=== PATIENT | male | born 1950 | race Caucasian/White ===

== ENCOUNTER 2018-06-22 13:52 | Inpatient (IN) ==
--- NOTE | 2018-06-22 14:06 | Emergency Department Note ---
Disposition Clinical Impression: Fever, Pneumonia, Diabetes Disposition: Admitted As Inpatient Condition: Good Referrals: Maulik Ragsdale MD [Primary Care Provider] - Forms: ED Satisfaction Letter Time of Disposition: 15:34 (nadege obsv) Weakness HPI - General Chief complaint: ED Weakness Stated complaint: elevated glucose, gen weakness Time Seen by Provider: 06/22/18 13:53 Source: patient Mode of arrival: ambulatory Limitations: no limitations Nursing Notes Reviewed: Yes Vital Signs Reviewed: Yes - History of Present Illness HPI Narrative: 68-year-old male who presents to the emergency room his had fever nausea vomiting ill feeling was supposed to be of the family's today but was too significantly. Denies blurred vision double vision loss vision denies numbness tingling weakness recent weight gain or weight loss patient just states does not feel his self he states that he has had a little cramping followed by explosive watery diarrhea he has had vomiting but denies anything tripped precipitated denies any rashes or lesions all systems have been reviewed and are otherwise negative Pt Subjective Complaint: generalized weakness/fatigue Onset (ago): Just [employer] Location: generalized Improves with: none Worsens with: none Context: recent illness Associated symptoms: Reports: fever/chills, loss of appetite, nausea/vomiting, shortness of breath, other (Elevated sugars). Denies: chest pain, confusion, dark stools, diaphoresis, dysuria, easy bruising, headaches, myalgias, rash, syncope - Related Data Home Medications Medication Instructions Recorded Confirmed Allopurinol [Zyloprim] 100 mg PO DAILY 12/06/15 06/22/18 Atorvastatin Calcium [Lipitor] 20 mg PO HS 12/06/15 06/22/18 Clopidogrel [Plavix] 75 mg PO DAILY 12/06/15 06/22/18 Isosorbide MONOnitrate (24 HR) 30 mg PO DAILY 12/06/15 02/24/18 [Imdur] Multivitamin [Multi-Day Vitamins] 1 each PO DAILY 12/06/15 02/24/18 Sertraline [Zoloft] 100 mg PO DAILY 12/06/15 06/22/18 Sucralfate [Carafate] 1 gm PO QID 12/06/15 06/22/18 Insulin Degludec [Tresiba 60 unit SQ HS 03/16/16 06/22/18 Flextouch U-100] Metoclopramide HCl 5 mg PO QID 03/16/16 06/22/18 Budesonide/Formoterol 160/4.5 2 puff IH BID 07/21/16 02/24/18 [Symbicort 160/4.5] Cyanocobalamin (Vitamin B-12) 1,000 mcg PO DAILY 07/21/16 06/22/18 [Vitamin B-12] Docusate Sodium [Dok] 100 mg PO TID 07/21/16 06/22/18 Ferrous Sulfate [Iron] 325 mg PO DAILY 07/21/16 06/22/18 Insulin ASPART [NovoLOG] 0 unit SQ AD 07/21/16 06/22/18 Magnesium Oxide [Mag-Ox] 400 mg PO DAILY 07/21/16 06/22/18 Nitroglycerin [Nitrostat] 0.4 mg SL Q5M PRN 07/21/16 02/24/18 Torsemide [Demadex] 60 mg PO BID 07/21/16 06/22/18 raNITIdine HCl [Ranitidine HCl] 150 mg PO DAILY 07/21/16 06/22/18 Potassium Chloride [K-Tab ER] 40 meq PO BID 08/11/17 06/22/18 Hydralazine HCl 100 mg PO BID 02/24/18 02/24/18 Apixaban [Eliquis] 5 mg PO BID 06/22/18 06/22/18 Apresoline 1 PO TID 06/22/18 Budesonide/Formoterol 160/4.5 2 puff IH BIDR 06/22/18 06/22/18 [Symbicort 160/4.5] Isosorbide MONOnitrate (24 HR) 60 mg PO DAILY 06/22/18 06/22/18 [Imdur] NIFEdipine [Nifedipine ER] 90 mg PO BID 06/22/18 06/22/18 Pantoprazole Sodium [Protonix] 40 mg PO 06/22/18 Sertraline [Zoloft] 100 mg PO DAILY 06/22/18 06/22/18 Spironolactone [Aldactone] 50 mg PO DAILY 06/22/18 06/22/18 cloNIDine HCl [Clonidine HCl] 0.2 mg PO BID 04/22/19 04/22/19 Previous Rx's Medication Instructions Recorded LORazepam [Ativan] 0.5 mg PO BID PRN #20 tablet 07/22/16 Carvedilol [Coreg] 50 mg PO BIDWM 30 Days #60 tablet 08/13/17 Allergies Allergy/AdvReac Type Severity Reaction Status Date / Time lisinopril Allergy Severe Swelling Verified 02/24/18 11:43 of Lip/Tongue/Throat All systems ED: reviewed and negative except as stated. Review of Systems: As Per HPI Constitutional: Reports: fever, chills, weakness Eyes: Denies: eye pain, eye discharge ENT ED: Denies: ear pain, throat pain Cardiovascular: Reports: palpitations, dyspnea on exertion, other (Hypoxia has pulse oximetry at home showing that he was in the low 70s). Denies: chest pain Respiratory: Reports: cough, dyspnea, wheezes Gastrointestinal: Reports: nausea, vomiting, diarrhea. Denies: abdominal pain Genitourinary: Denies: urgency, dysuria Musculoskeletal: Denies: back pain Integumentary: Denies: rash, abrasion Neurological: Denies: headache Psychiatric: Denies: anxiety Endocrine: Denies: fatigue Hematological/Lymphatic: Denies: easy bleeding Allergic/Immunologic: Denies: facial swelling Past Medical History - Past Medical History Attestation: Yes The following information was validated with the patient. Source: patient, old records reviewed, obtained from family, nursing notes reviewed Medical history: Reports: cancer, cirrhosis, CHF, COPD, coronary artery disease, diabetes, hyperlipidemia, hypertension, myocardial infarction, other (Hard of hearing, pericardial effusion) Surgical history: Reports: angioplasty/stent, other Psychiatric history: Reports: depression - Social History Smoking Status: Current every day smoker Smokeless Tobacco Status: No Alcohol use: Reports: none Drug use: Reports: none Physical Exam - General Limitations: no limitations General appearance: alert, in no apparent distress, obese - Head Head exam: atraumatic, normocephalic, normal inspection - Eye Eye exam: Present: normal appearance, PERRL, EOMI - ENT ENT exam: normal exam, normal oropharynx, mucous membranes moist, TM's normal bilaterally, normal external ear exam - Neck Neck exam: Present: normal inspection, full ROM, trachea midline - Chest Chest inspection: Present: normal inspection, symmetric chest wall rise - Respiratory Respiratory exam: Present: normal lung sounds bilaterally - Cardiovascular Cardiovascular exam: Present: regular rate, normal rhythm, normal heart sounds - Abdominal Exam Abdominal exam: Present: soft, Non-Tender, normal bowel sounds, scar (Evidence of prior PEG tube noted). Absent: Guerrero's sign, tenderness at McBurney's Point, mass, pulsatile mass, hernia - Expanded Upper Extremity Exam Shoulder exam: Present: normal inspection, full ROM Arm exam: Present: normal inspection, full ROM Elbow exam: Present: normal inspection, full ROM Forearm/Wrist exam: Present: normal inspection, full ROM Hand exam: Present: normal inspection, full ROM Vascular exam: Normal: capillary refill, radial pulse - Expanded Lower Extremity Exam Hip/Pelvis exam: Present: normal inspection, full ROM Upper leg exam: Present: normal inspection, full ROM 1 - Amputation Knee exam: Present: normal inspection, full ROM Lower leg exam: Present: normal inspection, full ROM Ankle exam: Present: normal inspection, full ROM Foot/toe exam: Present: normal inspection, full ROM Neurovascular/Tendon exam: Present: normal capillary refill, normal fine/light touch. Absent: motor deficit, sensory deficit, tendon deficit Gait: not tested/not observed - Back Exam Back exam: Present: normal inspection, full ROM. Absent: muscle spasm - Neurological Exam Neurological exam: Present: alert, oriented X3, CN II-XII intact - Psychiatric Psychiatric exam: Present: normal affect, normal mood - Skin Skin exam: Present: warm, dry, intact, normal color Course Course Narrative: Patient was seen and examined laboratory data was ordered and also a chest x-ray patient was describing symptoms which could be consistent infectious etiology we did blood cultures and lactic acid also for this reason With the patient's result shows that he has a developing pneumonia on the chest x-ray which accounts for the elevated white count and would account for his overall weakness and worsening patient's family is agreeable patient is agreeable patient transferred to [facility] Vital Signs Temperature 99.4 F 06/22/18 13:54 Pulse Rate 69 06/22/18 13:54 Respiratory Rate 14 06/22/18 13:54 Blood Pressure 196/70 06/22/18 13:54 O2 Sat by Pulse Oximetry 91 06/22/18 13:54 Temperature 99.4 F 06/22/18 13:54 Pulse Rate 58 06/22/18 14:56 Respiratory Rate 18 06/22/18 14:56 Blood Pressure 135/52 06/22/18 14:56 O2 Sat by Pulse Oximetry 94 06/22/18 14:56 Oxygen Delivery Oxygen Delivery Nasal Cannula Weakness - Differential Diagnosis Differential Diagnosis: Likely: acute myocardial infarction, anemia, hypogl ycemia, sepsis/infection, dehydration, medication effect, metabolic, thyroid/endocrine disorder - Medical Records Medical records reviewed: Yes I reviewed the patient's medical records. - Lab Data Lab results reviewed: Yes I reviewed the patient's lab results. Result diagrams: 06/22/18 14:23 06/22/18 14:23 Lab Results 06/22/18 06/22/18 06/22/18 Range/Units 14:23 14:23 14:23 WBC 26.6 H (4.3-11.1) K/mcL RBC 4.45 (4.19-5.50) M/mcL Hgb 10.7 L (12.9-16.9) g/dL Hct 33.7 L (37.5-50.1) % MCV 75.7 L (83.0-100.0) fL MCH 24.0 L (28.0-33.3) pg MCHC 31.8 (31.6-35.5) g/dL RDW 16.5 H (11.5-14.5) % Plt Count 278 (140-400) K/mcL MPV 8.9 L (9.4-12.4) fL Seg Neutrophils % 86.0 % Band Neutrophils % 2.0 (0-4) % Lymphocytes % 6.0 % Monocytes % 2.0 % Metamyelocytes % 2.0 H (0) % Promyelocytes % 2.0 H (0) % Neutrophils # 23.4 H (1.6-8.9) K/mcL Lymphocytes # 1.6 (0.6-4.6) K/mcL Monocytes # 0.5 (0.0-1.3) K/mcL Hypersegmented Neuts Present A (Not Present) Toxic Vacuolation Present A (Not Present) Platelet Estimate Normal (Normal) Microcytosis Present A (Not Present) PT (9.4-12.1) Seconds INR APTT 38.5 H (26.0-36.0) Seconds Sodium 135 L (136-145) mEq/L Potassium 3.6 (3.5-5.1) mEq/L Chloride 99 (98-107) mEq/L Carbon Dioxide 26 (23-29) mEq/L BUN 30 H (8-23) mg/dL Creatinine 1.46 H (0.70-1.30) mg/dL Est GFR ( Amer) 58 L (> 60) Est GFR (Non-Af Amer) 48 L (> 60) BUN/Creatinine Ratio 21 (6-26) Glucose 353 H (70-105) mg/dL Calculated Osmolality 300 (280-300) Lactic Acid (0.5-2.2) mmol/L Calcium 8.9 (8.6-10.3) mg/dL Total Bilirubin 0.5 (0.3-1.0) mg/dL AST 8 L (13-39) Units/L ALT 8 (7-52) Units/L Alkaline Phosphatase 97 (34-104) Units/L Troponin I (< 0.04) ng/mL Serum Total Protein 6.8 (6.4-8.9) g/dL Albumin 3.7 (3.5-5.7) g/dL Globulin 3.1 (2.4-3.5) g/dL Albumin/Globulin Ratio 1.2 (1.1-2.2) TSH (0.340-5.600) mcIU/mL 06/22/18 06/22/18 06/22/18 Range/Units 14:23 14:23 14:23 WBC (4.3-11.1) K/mcL RBC (4.19-5.50) M/mcL Hgb (12.9-16.9) g/dL Hct (37.5-50.1) % MCV (83.0-100.0) fL MCH (28.0-33.3) pg MCHC (31.6-35.5) g/dL RDW (11.5-14.5) % Plt Count (140-400) K/mcL MPV (9.4-12.4) fL Seg Neutrophils % % Band Neutrophils % (0-4) % Lymphocytes % % Monocytes % % Metamyelocytes % (0) % Promyelocytes % (0) % Neutrophils # (1.6-8.9) K/mcL Lymphocytes # (0.6-4.6) K/mcL Monocytes # (0.0-1.3) K/mcL Hypersegmented Neuts (Not Present) Toxic Vacuolation (Not Present) Platelet Estimate (Normal) Microcytosis (Not Present) PT 16.7 H (9.4-12.1) Seconds INR 1.5 APTT (26.0-36.0) Seconds Sodium (136-145) mEq/L Potassium (3.5-5.1) mEq/L Chloride (98-107) mEq/L Carbon Dioxide (23-29) mEq/L BUN (8-23) mg/dL Creatinine (0.70-1.30) mg/dL Est GFR ( Amer) (> 60) Est GFR (Non-Af Amer) (> 60) BUN/Creatinine Ratio (6-26) Glucose (70-105) mg/dL Calculated Osmolality (280-300) Lactic Acid 1.7 (0.5-2.2) mmol/L Calcium (8.6-10.3) mg/dL Total Bilirubin (0.3-1.0) mg/dL AST (13-39) Units/L ALT (7-52) Units/L Alkaline Phosphatase (34-104) Units/L Troponin I 0.04 H* (< 0.04) ng/mL Serum Total Protein (6.4-8.9) g/dL Albumin (3.5-5.7) g/dL Globulin (2.4-3.5) g/dL Albumin/Globulin Ratio (1.1-2.2) TSH 3.221 (0.340-5.600) mcIU/mL - Radiology Data Radiology results reviewed: Yes I reviewed the patient's radiology results. - EKG Data EKG attestation: Yes I reviewed and interpreted this EKG. EKG results narrative: Sinus rhythm prolonged OK nonspecific interventricular conduction delay no ST segment elevation rate 56 OK 218 QRS 126 QT 469 axis XXIV Critical Care Time Critical Care Time: No Sepsis Event Note - Evaluation Current Stage of Suspected Sepsis: ruled out Reason for ruling out sepsis: lactic and no end organ damage Possible Source of Sepsis: pulmonary - Focused Exam Date of Encounter: 06/22/18 Time of Encounter: 15:48 Vital Signs: Vital Signs Temp Pulse Resp BP Pulse Ox 06/22/18 14:56 58 18 135/52 94 06/22/18 14:34 57 18 133/54 95 06/22/18 14:03 91 06/22/18 13:54 99.4 F 69 14 196/70 91 Respiratory Exam: Present: CTA bilaterally, rhonchi Cardiovascular Exam: Present: RRR Capillary Refill: < 2 seconds Peripheral Pulse Strength: 3+ normal Peripheral Pulse Location: Radial Skin Exam: normal turgor - Bedside Monitoring Bedside Ultrasound Performed: No Passive Leg raise/fluid bolus: not performed
[2018-06-22] MEDS ORDERED: 0.9 % Sodium Chloride 1,000 ML ONE (14:13)
[2018-06-22] MEDS ORDERED: 0.9 % Sodium Chloride 1,000 ML IVC SCH (14:15)
[2018-06-22 14:32] LABS: Hematocrit 33.7 % (37.5-50.1); Hemoglobin 10.7 g/dL (12.9-16.9); Mean Corpuscular HGB Conc 31.8 g/dL (31.6-35.5); Mean Corpuscular Volume 75.7 fL (83.0-100.0); Mean Platelet Volume 8.9 fL (9.4-12.4); Platelet Count 278 K/mcL (140-400); Red Blood Count 4.45 M/mcL (4.19-5.50); Red Cell Distribution Width 16.5 % (11.5-14.5)
[2018-06-22 14:41] LABS: INR 1.5; Prothrombin Time 16.7 Seconds (9.4-12.1)
[2018-06-22 14:47] LABS: Albumin 3.7 g/dL (3.5-5.7); Albumin/Globulin Ratio 1.2 (1.1-2.2); Bilirubin,Total 0.5 mg/dL (0.3-1.0); Calcium 8.9 mg/dL (8.6-10.3); Globulin 3.1 g/dL (2.4-3.5); Potassium 3.6 mEq/L (3.5-5.1); Total Protein 6.8 g/dL (6.4-8.9)
[2018-06-22 14:53] LABS: Troponin I 0.04 ng/mL (< 0.04)
[2018-06-22 14:56] LABS: Lymphocytes # 1.6 K/mcL (0.6-4.6); Monocytes # 0.5 K/mcL (0.0-1.3); Neutrophils # 23.4 K/mcL (1.6-8.9)
[2018-06-22 14:57] LABS: Hypersegmented Neutrophils Present (Not Present); Microcytosis Present (Not Present)
[2018-06-22 14:58] LABS: Platelet Estimate Normal (Normal); Toxic Vacuolation Present (Not Present)
[2018-06-22] MEDS ORDERED: Azithromycin 500 MG in D5% in Water 250 ML IVPB ONE (15:02)
[2018-06-22 15:13] LABS: Thyroid Stimulating Hormone 3.221 mcIU/mL (0.340-5.600)
--- NOTE | 2018-06-22 15:56 | Electrocardiograph Report ---
[place] [id number] Test Date: 2018-06-22 Pat Name: Sukhdev Jimenez Department: EDP-16 Room: Gender: M [employer]: : 1950 Requested By: Diana Lin Order Number: [id number] Reading MD: Lucy Zaman Measurements Intervals Gracey Rate: 56 P: -25 WA: 218 QRS: 24 QRSD: 126 T: 61 QT: 469 QTc: 453 Interpretive Statements Sinus rhythm Prolonged WA interval Nonspecific intraventricular conduction delay Electronically Signed On 06-22-2018 15:54:26 EDT by Lucy Zaman
[2018-06-22] MEDS ORDERED: 0.45 % Sodium Chloride w/KCl 20 MEQ/1,000 ML MLS IVC SCH (18:15)
[2018-06-22] MEDS ORDERED: D5% in Water 1,000 ML IVC PRN (18:54)
[2018-06-22] MEDS ORDERED: Dextrose Gel 15 GM/37.5 ML TUBE PO PRN ×2 (18:54)
[2018-06-22] MEDS ORDERED: Naloxone 0.4 MG/ML INJ IVP PRN (18:54)
[2018-06-22] MEDS ORDERED: *HR* Dextrose 50 % in Water (Syg) 50 ML SYRINGE IVP PRN (18:54)
[2018-06-22] MEDS: Sucralfate 1 GM TABLET PO SCH ×2 (21:00→23:16)
[2018-06-22] MEDS ORDERED: Insulin DETEMIR 100 UNIT/ML per UNIT SQ ONE (21:00)
[2018-06-22] MEDS: Insulin LISPRO 300 UNITS/3 ML VIAL SQ SCH (21:01)
[2018-06-22] MEDS: 0.45 % Sodium Chloride w/KCl 20 MEQ/1,000 ML MLS IVC SCH (21:01)
[2018-06-22] MEDS: NIFEdipine XL (24 HR) 30 MG TAB.ER.24 PO SCH (21:02)
[2018-06-22] MEDS: Apixaban 5 MG TABLET PO SCH (21:02)
[2018-06-22] MEDS: Nicotine 21 MG PATCH.TD24 TD SCH (21:02)
[2018-06-22] MEDS: cloNIDine HCl 0.1 MG TABLET PO SCH (21:03)
[2018-06-22] MEDS: *HR* LORazepam 0.5 MG TABLET PO PRN (21:03)
[2018-06-22] MEDS: Torsemide 20 MG TABLET PO SCH (21:11)
[2018-06-22] MEDS: Budesonide/Formoterol 160/4.5 1 PUFF INH IH SCH (23:07)
[2018-06-23 06:43] LABS: Basophils # 0.1 K/mcL (0.0-0.2); Basophils % 0.4 %; Eosinophils # 0.2 K/mcL (0.0-0.6); Eosinophils % 1.3 %; Hematocrit 33.3 % (37.5-50.1); Hemoglobin 10.5 g/dL (12.9-16.9); Immature Granulocytes % 0.4 % (0-4); Lymphocytes # 1.4 K/mcL (0.6-4.6); Lymphocytes % 10.4 %; Mean Corpuscular HGB Conc 31.5 g/dL (31.6-35.5); Mean Platelet Volume 9.5 fL (9.4-12.4); Monocytes # 0.6 K/mcL (0.0-1.3); Monocytes % 4.3 %; Neutrophils # 11.3 K/mcL (1.6-8.9); Platelet Count 254 K/mcL (140-400); Red Blood Count 4.38 M/mcL (4.19-5.50); Red Cell Distribution Width 16.4 % (11.5-14.5); Segmented Neutrophils % 83.2 %
[2018-06-23 07:06] LABS: BUN/Creatinine Ratio 21 (6-26); Blood Urea Nitrogen 23 mg/dL (8-23); Calcium 8.9 mg/dL (8.6-10.3); Carbon Dioxide 28 mEq/L (23-29); Chloride 101 mEq/L (98-107); Glucose 265 mg/dL (70-105); Osmolality,Calculated 299 (280-300); Potassium 3.5 mEq/L (3.5-5.1); Sodium 138 mEq/L (136-145); eGFR For Non-African Americans > 60 (> 60)
[2018-06-23] MEDS: Insulin LISPRO 300 UNITS/3 ML VIAL SQ SCH ×3 (08:08→16:27)
[2018-06-23] MEDS: cloNIDine HCl 0.1 MG TABLET PO SCH ×2 (08:55→19:51)
[2018-06-23] MEDS: Isosorbide MONOnitrate (24 HR) 60 MG TAB.ER.24H PO SCH (08:56)
[2018-06-23] MEDS: Famotidine 20 MG TABLET PO SCH (08:56)
[2018-06-23] MEDS: Magnesium Oxide 400 MG TABLET PO SCH (08:57)
[2018-06-23] MEDS: Apixaban 5 MG TABLET PO SCH ×2 (08:57→19:51)
[2018-06-23] MEDS: Sucralfate 1 GM TABLET PO SCH ×4 (08:57→19:52)
[2018-06-23] MEDS: Cyanocobalamin (B-12) 1,000 MCG TABLET PO SCH (08:57)
[2018-06-23 08:59] LABS: % Iron Saturation 10 % (20-55); Iron 20 mcg/dL (65-175); Transferrin 142 mg/dL (203-362)
[2018-06-23] MEDS: Torsemide 20 MG TABLET PO SCH ×2 (08:59→16:26)
[2018-06-23] MEDS: Nicotine 21 MG PATCH.TD24 TD SCH (08:59)
[2018-06-23] MEDS: cefTRIAXone 1,000 MG in Water for inj. (sterile) 20 ML 10 ML IVP SCH (09:02)
[2018-06-23 09:17] LABS: Ferritin 276 ng/mL (20-250)
[2018-06-23] MEDS: Budesonide/Formoterol 160/4.5 1 PUFF INH IH SCH ×2 (10:12→21:45)
[2018-06-23] MEDS: NIFEdipine XL (24 HR) 30 MG TAB.ER.24 PO SCH ×2 (10:29→19:51)
--- NOTE | 2018-06-23 11:55 | Internal Med History&Physical ---
Date of Encounter: 06/23/18 Time of Encounter: 11:20 Assessment and Plan (1) Pneumonia Current visit: Yes Status: Acute He has been started on Rocephin and Zithromax. Lactobacillus will be added. Qualifiers: Pneumonia type: due to unspecified organism Laterality: right Lung location: lower lobe of lung Qualified Code(s): J18.1 - Lobar pneumonia, unspecified organism (2) Acute gastroenteritis Current visit: Yes Status: Acute IV fluids have been ordered. Antiemetics will be given as needed. (3) Acute kidney injury Current visit: No Status: Acute IV fluids have been ordered. Renal indices will be monitored. (4) Gout Current visit: Yes Status: Acute Check uric acid level in a.m. Qualifiers: Gout site: unspecified site Gout etiology: unspecified cause Chronicity: chronic Presence of tophus: without tophus Qualified Code(s): M1A.9XX0 - Chronic gout, unspecified, without tophus (tophi) (5) Anemia Current visit: No Status: Chronic Anemia testing shows iron 20, transferrin saturation 10%, transferrin 142, ferritin 276, B12 465, and folate 15.0. He reports taking oral ferrous sulfate for approximately 3 years. IV iron dextran will be given. Qualifiers: Anemia type: unspecified type Qualified Code(s): D64.9 - Anemia, unspecified (6) COPD (chronic obstructive pulmonary disease) Current visit: No Status: Chronic Continue Symbicort. Albuterol nebs will be given as needed. Qualifiers: COPD type: unspecified COPD Qualified Code(s): J44.9 - Chronic obstructive pulmonary disease, unspecified (7) Diabetes mellitus Current visit: Yes Status: Chronic Check hemoglobin A1c in a.m. Continue basal insulin and Accu-Cheks with SSI. Qualifiers: Diabetes mellitus type: type 1 Diabetes mellitus complication status: with unspecified complications Qualified Code(s): E10.8 - Type 1 diabetes mellitus with unspecified complications (8) Hypertension Current visit: No Status: Chronic Continue home medications and monitor blood pressure. He reports workup for secondary causes of hypertension have been done at [facility]. Qualifiers: Hypertension type: essential hypertension Qualified Code(s): I10 - Essential (primary) hypertension Internal Medicine - H&P: HPI Chief complaint: Vomiting and diarrhea Admitted From: Emergency Dept Plans for Post Hospital Care: Home History of present illness: Mr. Jimenez is a 68 year old male who came to emergency room stating he had 3-4 episodes of nonbloody vomiting and diarrhea onset the evening of June 21. He felt fever chills and diaphoresis. He came to emergency room and was evaluated and was found to have anemia, acute renal insufficiency, and probable right lower lung pneumonia. He was admitted to [facility] floor for ongoing care needs. He denies family members or other contacts with similar symptoms. Respiratory history is significant for having smoked since age 13 up to 2 packs per day. He has a diagnosis of COPD and uses oxygen at bedtime and when necessary during the daytime. He has been diagnosed with KHANG but does not use CPAP/BiPAP. He has had pneumonia multiple times in the past. Past Med Surg Social Fam HX - Past Medical History Medical history: cancer, cirrhosis, CHF, COPD, coronary artery disease, diabetes, hyperlipidemia, hypertension, myocardial infarction, other Additional medical history: Diabetes type 1. Psychiatric history: depression - Past Surgical History Surgical History: angioplasty/stent, other Additional surgical history: LAKA for ulcers, cardiac cath with stents, PID with stents, - Social History Smoking Status: Current every day smoker Smokeless Tobacco Status: No Alcohol use: none Drug use: none - Family History Brother Hx Family Cancer: Yes (lung) Internal Medicine - H&P: Meds Allopurinol [Zyloprim] 100 mg PO DAILY 12/06/15 [History] Atorvastatin Calcium [Lipitor] 20 mg PO HS 12/06/15 [History] Clopidogrel [Plavix] 75 mg PO DAILY 12/06/15 [History] Isosorbide MONOnitrate (24 HR) [Imdur] 30 mg PO DAILY 12/06/15 [History] Multivitamin [Multi-Day Vitamins] 1 each PO DAILY 12/06/15 [History] Sertraline [Zoloft] 100 mg PO DAILY 12/06/15 [History] Sucralfate [Carafate] 1 gm PO QID 12/06/15 [History] Insulin Degludec [Tresiba Flextouch U-100] 60 unit SQ HS 03/16/16 [History] Metoclopramide HCl 5 mg PO QID 03/16/16 [History] Budesonide/Formoterol 160/4.5 [Symbicort 160/4.5] 2 puff IH BID 07/21/16 [History] Cyanocobalamin (Vitamin B-12) [Vitamin B-12] 1,000 mcg PO DAILY 07/21/16 [History] Docusate Sodium [Dok] 100 mg PO TID 07/21/16 [History] Ferrous Sulfate [Iron] 325 mg PO DAILY 07/21/16 [History] Insulin ASPART [NovoLOG] 0 unit SQ AD 07/21/16 [History] Magnesium Oxide [Mag-Ox] 400 mg PO DAILY 07/21/16 [History] Nitroglycerin [Nitrostat] 0.4 mg SL Q5M PRN 07/21/16 [History] Torsemide [Demadex] 60 mg PO BID 07/21/16 [History] raNITIdine HCl [Ranitidine HCl] 150 mg PO DAILY 07/21/16 [History] LORazepam [Ativan] 0.5 mg PO BID PRN #20 tablet 07/22/16 [Rx] Potassium Chloride [K-Tab ER] 40 meq PO BID 08/11/17 [History] Carvedilol [Coreg] 50 mg PO BIDWM 30 Days #60 tablet 08/13/17 [Rx] Hydralazine HCl 100 mg PO BID 02/24/18 [History] Apixaban [Eliquis] 5 mg PO BID 06/22/18 [History] Apresoline 1 PO TID 06/22/18 [History] Budesonide/Formoterol 160/4.5 [Symbicort 160/4.5] 2 puff IH BIDR 06/22/18 [History] Isosorbide MONOnitrate (24 HR) [Imdur] 60 mg PO DAILY 06/22/18 [History] NIFEdipine [Nifedipine ER] 90 mg PO BID 06/22/18 [History] Pantoprazole Sodium [Protonix] 40 mg PO 06/22/18 [History] Sertraline [Zoloft] 100 mg PO DAILY 06/22/18 [History] Spironolactone [Aldactone] 50 mg PO DAILY 06/22/18 [History] cloNIDine HCl [Clonidine HCl] 0.2 mg PO BID 06/22/18 [History] Allergy/AdvReac Type Severity Reaction Status Date / Time lisinopril Allergy Severe Swelling Verified 02/24/18 11:43 of Lip/Tongue/Throat All Systems PM: A 10-system review of systems was performed and is negative for pertinent findings except as documented above in the HPI. Review of systems: Gen.: He states his weight has been stable for several months Cardiovascular: He has history of long-standing resistant hypertension requiring multiple medications for treatment. He has ASHD status post MIs at age 48 and 63. He reports numerous heart caths with most recent approximately 2012. He states he has had "20 stents". He reports left carotid endarterectomy approximately 2012. He reports a diagnosis of heart failure. Echocardiogram 08/11/2017 showed LVEF of 55-60%. The interventricular septum and posterior wall thickness measurements were 1.31 cm each. There was LAE at 5.20 cm. The E/A ratio was 1.3. No significant valvular abnormalities were seen. He reports a pulmonary embolism January 2018 and is on Eliquis. Respiratory: As per history of present illness GI: He has had cholecystectomy. He has NAFLD and occasional GERD symptoms. He denies other disorders of his liver or exocrine pancreas. : He denies hematuria dysuria or kidney stones Neurologic: He denies large distribution strokes or seizures. Endocrine: He was diagnosed with DM 1 at age 28. He has hypertriglyceridemia. He denies known thyroid disease. Hematology/oncology: He reports being diagnosed with Hodgkin's lymphoma approximately 2015. He has received chemotherapy and states he is in remission. He denies other known internal malignancies. He was unaware he had anemia on all labs since May 2015. 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 He has history of gout. He denies other bone joint or muscle disorders. - Constitutional Vitals: Temp Pulse Resp BP Pulse Ox 98.6 F 62 20 174/75 92 06/23/18 11:15 06/23/18 11:15 06/23/18 11:15 06/23/18 11:15 06/23/18 11:15 Exam: Gen.: He is a well-developed well-nourished male lying in bed who appears in no acute distress at present time HEENT: Head is atraumatic and normocephalic. Eyes: EOMI. There is no scleral icterus. Mouth: Mucosa is moist. Neck: Supple and nontender. There is no thyromegaly or adenopathy noted. Heart: Regular without murmurs gallops or ectopics Lungs: No wheezes or crackles are heard. Abdomen: Soft and nontender. No masses or guarding are noted. Extremities: He has well-healed left AKA. The right leg shows 1+ edema of the dorsal foot and lower anterior ambriz. There is chronic venous stasis pigmentation changes of his lower leg and foot. Dorsalis pedis and posterior tibial pulses are not palpable. He has onychomycosis of all toenails. Neurologic: Mental status: He is talkative and a good historian. Cranial nerves: Smile is symmetric. Forehead wrinkles bilaterally. Tongue protrudes midline. EOMI. Motor: There is no pronator drift. Cerebellar: Finger to nose is intact bilaterally. Skin: Warm and dry Internal Med - H&P Results - Labs CBC & Chem 7: 06/23/18 06:30 06/23/18 06:30 Labs: Short CBC 06/22/18 06/23/18 Range/Units 14:23 06:30 WBC 26.6 H 13.6 H (4.3-11.1) K/mcL Hgb 10.7 L 10.5 L (12.9-16.9) g/dL Hct 33.7 L 33.3 L (37.5-50.1) % Plt Count 278 254 (140-400) K/mcL Neutrophils # 23.4 H 11.3 H (1.6-8.9) K/mcL BMP 06/22/18 06/23/18 14:23 06:30 Sodium 135 L 138 Potassium 3.6 3.5 Chloride 99 101 Carbon Dioxide 26 28 BUN 30 H 23 Creatinine 1.46 H 1.11 Glucose 353 H 265 H Calcium 8.9 8.9 Cardiac Enzymes 06/22/18 Range/Units 14:23 Troponin I 0.04 H* (< 0.04) ng/mL Liver Function 06/22/18 Range/Units 14:23 Total Bilirubin 0.5 (0.3-1.0) mg/dL AST 8 L (13-39) Units/L ALT 8 (7-52) Units/L Alkaline Phosphatase 97 (34-104) Units/L Albumin 3.7 (3.5-5.7) g/dL - Impressions ITS Impressions Chest X-Ray 06/22/18 14:01 IMPRESSION: 1. Findings suggestive of pulmonary interstitial edema with trace bilateral pleural effusions. 2. More focal pulmonary opacity within right lower lung may represent atelectasis or edema. Superimposed pneumonia or aspiration is not excluded. RECOMMENDATION: Radiographic follow-up to complete resolution. D/ / 06/22/2018 14:44:20 Arturo Jurado MD / Marcela Simmons Interpreting Provider: Arturo Jurado MD
[2018-06-23] MEDS: Spironolactone 25 MG TABLET PO SCH (11:58)
[2018-06-23] MEDS ORDERED: Ondansetron 4 MG/2 ML VIAL IVP PRN (12:22)
[2018-06-23] MEDS ORDERED: IRON DEXTRAN COMPLEX IVPB ONE (12:36)
[2018-06-23] MEDS ORDERED: SODIUM CHLORIDE 0.9% IVPB ONE (12:36)
[2018-06-23] MEDS: 0.45 % Sodium Chloride w/KCl 20 MEQ/1,000 ML MLS IVC SCH (13:28)
[2018-06-23] MEDS ORDERED: Azithromycin 500 MG in D5% in Water 250 ML IVPB SCH (16:00)
[2018-06-23] MEDS: Lactobacillus 1 EACH CAP.SPRINK PO SCH (19:51)
[2018-06-23] MEDS: *HR* LORazepam 0.5 MG TABLET PO PRN (19:52)
[2018-06-23] MEDS ORDERED: Insulin DETEMIR 100 UNIT/ML X5UNITS SQ SCH (21:00)
[2018-06-23] MEDS ORDERED: Acetaminophen 325 MG TABLET PO PRN (21:36)
[2018-06-24 06:25] LABS: Basophils # 0.1 K/mcL (0.0-0.2); Basophils % 0.6 %; Eosinophils # 0.4 K/mcL (0.0-0.6); Eosinophils % 3.8 %; Hematocrit 35.6 % (37.5-50.1); Hemoglobin 11.1 g/dL (12.9-16.9); Immature Granulocytes % 0.4 % (0-4); Lymphocytes # 1.7 K/mcL (0.6-4.6); Lymphocytes % 17.7 %; Mean Corpuscular HGB Conc 31.2 g/dL (31.6-35.5); Mean Corpuscular Hemoglobin 23.6 pg (28.0-33.3); Mean Corpuscular Volume 75.6 fL (83.0-100.0); Monocytes # 0.5 K/mcL (0.0-1.3); Monocytes % 5.6 %; Neutrophils # 6.9 K/mcL (1.6-8.9); Platelet Count 269 K/mcL (140-400); Red Blood Count 4.71 M/mcL (4.19-5.50); Red Cell Distribution Width 16.3 % (11.5-14.5); Segmented Neutrophils % 71.9 %
[2018-06-24 06:32] VITALS: BP 190/83
[2018-06-24 06:50] LABS: BUN/Creatinine Ratio 19 (6-26); Blood Urea Nitrogen 20 mg/dL (8-23); Calcium 9.3 mg/dL (8.6-10.3); Carbon Dioxide 30 mEq/L (23-29); Chloride 100 mEq/L (98-107); Glucose 234 mg/dL (70-105); Magnesium 1.8 mg/dL (1.6-2.6); Osmolality,Calculated 296 (280-300); Potassium 3.3 mEq/L (3.5-5.1); Sodium 138 mEq/L (136-145); Uric Acid 8.2 mg/dL (2.3-7.6); eGFR For Non-African Americans > 60 (> 60)
[2018-06-24] MEDS: Nicotine 21 MG PATCH.TD24 TD SCH (08:33)
[2018-06-24] MEDS: Torsemide 20 MG TABLET PO SCH (08:33)
[2018-06-24] MEDS: Isosorbide MONOnitrate (24 HR) 60 MG TAB.ER.24H PO SCH (08:34)
[2018-06-24] MEDS: cloNIDine HCl 0.1 MG TABLET PO SCH (08:35)
[2018-06-24] MEDS: Famotidine 20 MG TABLET PO SCH (08:36)
[2018-06-24] MEDS: NIFEdipine XL (24 HR) 30 MG TAB.ER.24 PO SCH (08:36)
[2018-06-24] MEDS: Sucralfate 1 GM TABLET PO SCH (08:37)
[2018-06-24] MEDS: Apixaban 5 MG TABLET PO SCH (08:37)
[2018-06-24] MEDS: Magnesium Oxide 400 MG TABLET PO SCH (08:38)
[2018-06-24] MEDS: Cyanocobalamin (B-12) 1,000 MCG TABLET PO SCH (08:38)
[2018-06-24] MEDS: Spironolactone 25 MG TABLET PO SCH (08:39)
[2018-06-24] MEDS: Lactobacillus 1 EACH CAP.SPRINK PO SCH (08:39)
[2018-06-24] MEDS: Insulin LISPRO 300 UNITS/3 ML VIAL SQ SCH (08:44)
[2018-06-24] MEDS: cefTRIAXone 1,000 MG in Water for inj. (sterile) 20 ML 10 ML IVP SCH (08:49)
--- NOTE | 2018-06-24 09:38 | Discharge Summary ---
Orders not resulted at time of discharge: Pending orders 06/22/18 14:27 Culture,Blood [BC] Stat 06/24/18 06:16 Hgb A1C AM 0400 Date of Encounter: 06/24/18 Time of Encounter: 09:20 - Discharge Diagnosis (1) Pneumonia Priority: Primary Status: Acute Qualifiers: Pneumonia type: due to unspecified organism Laterality: right Lung location: lower lobe of lung Qualified Code(s): J18.1 - Lobar pneumonia, unspecified organism (2) Acute gastroenteritis Priority: Secondary Status: Resolved (3) Acute kidney injury Priority: Secondary Status: Acute (4) Gout Priority: Secondary Status: Chronic Qualifiers: Gout site: unspecified site Gout etiology: unspecified cause Chronicity: chronic Presence of tophus: without tophus Qualified Code(s): M1A.9XX0 - Chronic gout, unspecified, without tophus (tophi) (5) Anemia Priority: Secondary Status: Chronic Qualifiers: Anemia type: iron deficiency Iron deficiency anemia type: unspecified iron deficiency Qualified Code(s): D50.9 - Iron deficiency anemia, unspecified (6) COPD (chronic obstructive pulmonary disease) Priority: Secondary Status: Chronic Qualifiers: COPD type: unspecified COPD Qualified Code(s): J44.9 - Chronic obstructive pulmonary disease, unspecified (7) Diabetes mellitus Priority: Secondary Status: Chronic Qualifiers: Diabetes mellitus type: type 1 Diabetes mellitus complication status: with unspecified complications Qualified Code(s): E10.8 - Type 1 diabetes mellitus with unspecified complications (8) Hypertension Priority: Secondary Status: Chronic Qualifiers: Hypertension type: essential hypertension Qualified Code(s): I10 - Essential (primary) hypertension Hospital course: Mr. Jimenez is a 68 year old male who came to emergency room stating he had 3-4 episodes of nonbloody vomiting and diarrhea onset the evening of June 21. He felt fever chills and diaphoresis. He came to emergency room and was evaluated and was found to have anemia, acute renal insufficiency, and probable right lower lung pneumonia. He was admitted to [facility] floor for ongoing care needs. Initial orders were written by the emergency room physician. I saw him on June 23 and performed a history and physical. He was started on Rocephin and Zithromax with lactobacillus for pneumonia. IV fluids and prn anti-emetics were ordered for acute gastroenteritis. He had good clinical response with WBC normalizing to 9.6 with resolution of WBC differential left shift by June 24. He remained afebrile during hospitalization. On June 24 he felt significantly improved and stable for discharge home. He will continue with oral antibiotic and probiotic for 4 additional days at discharge. Azotemia improved with creatinine decreasing to 1.08 and estimated GFR > 60 by day of discharge. Uric acid level returned elevated at 8.2. Allopurinol dose will be increased to 200 mg daily. Anemia testing showed iron 20, transferrin saturation 10%, transferrin 142, ferritin 276, B12 465, and folate 15.0. He stated he was taking oral ferrous sulfate at home. IV iron dextran was given. Hemoglobin had risen to 11.1 by day of discharge. His PCP can monitor. He will be discharged home and follow with his PCP Dr. Maulik Ragsdale within 1 week. - Time Spent with Patient Total time spent providing and/or coordinating discharge services: - Discharge Medications Prescriptions: New Cefuroxime PO [Ceftin] 500 mg PO Q12HR #8 tablet Allopurinol [Zyloprim 100 MG] 200 mg PO DAILY #60 tablet Azithromycin [Zithromax] 250 mg PO DAILY #4 tablet Lactobacillus [Culturelle] 1 each PO BID #8 cap.sprink Continue Multivitamin [Multi-Day Vitamins] 1 each PO DAILY Sucralfate [Carafate] 1 gm PO QID Sertraline [Zoloft] 100 mg PO DAILY Clopidogrel [Plavix] 75 mg PO DAILY Isosorbide MONOnitrate (24 HR) [Imdur] 30 mg PO DAILY Atorvastatin Calcium [Lipitor] 20 mg PO HS Metoclopramide HCl 5 mg PO QID Insulin Degludec [Tresiba Flextouch U-100] 60 unit SQ HS Torsemide [Demadex] 60 mg PO BID Cyanocobalamin (Vitamin B-12) [Vitamin B-12] 1,000 mcg PO DAILY raNITIdine HCl [Ranitidine HCl] 150 mg PO DAILY Magnesium Oxide [Mag-Ox] 400 mg PO DAILY Ferrous Sulfate [Iron] 325 mg PO DAILY Docusate Sodium [Dok] 100 mg PO TID Budesonide/Formoterol 160/4.5 [Symbicort 160/4.5] 2 puff IH BID Nitroglycerin [Nitrostat] 0.4 mg SL Q5M PRN PRN Reason: Chest Pain Insulin ASPART [NovoLOG] 0 unit SQ AD LORazepam [Ativan] 0.5 mg PO BID PRN #20 tablet PRN Reason: Anxiety Potassium Chloride [K-Tab ER] 40 meq PO BID Carvedilol [Coreg] 50 mg PO BIDWM 30 Days #60 tablet Hydralazine HCl 100 mg PO BID NIFEdipine [Nifedipine ER] 90 mg PO BID Budesonide/Formoterol 160/4.5 [Symbicort 160/4.5] 2 puff IH BIDR Sertraline [Zoloft] 100 mg PO DAILY Isosorbide MONOnitrate (24 HR) [Imdur] 60 mg PO DAILY cloNIDine HCl [Clonidine HCl] 0.2 mg PO BID Spironolactone [Aldactone] 50 mg PO DAILY Apixaban [Eliquis] 5 mg PO BID Pantoprazole Sodium [Protonix] 40 mg PO Apresoline 1 PO TID Discontinued Allopurinol [Zyloprim] 100 mg PO DAILY Home Medications: Atorvastatin Calcium [Lipitor] 20 mg PO HS 12/06/15 [History] Clopidogrel [Plavix] 75 mg PO DAILY 12/06/15 [History] Isosorbide MONOnitrate (24 HR) [Imdur] 30 mg PO DAILY 12/06/15 [History] Multivitamin [Multi-Day Vitamins] 1 each PO DAILY 12/06/15 [History] Sertraline [Zoloft] 100 mg PO DAILY 12/06/15 [History] Sucralfate [Carafate] 1 gm PO QID 12/06/15 [History] Insulin Degludec [Tresiba Flextouch U-100] 60 unit SQ HS 03/16/16 [History] Metoclopramide HCl 5 mg PO QID 03/16/16 [History] Budesonide/Formoterol 160/4.5 [Symbicort 160/4.5] 2 puff IH BID 07/21/16 [History] Cyanocobalamin (Vitamin B-12) [Vitamin B-12] 1,000 mcg PO DAILY 07/21/16 [History] Docusate Sodium [Dok] 100 mg PO TID 07/21/16 [History] Ferrous Sulfate [Iron] 325 mg PO DAILY 07/21/16 [History] Insulin ASPART [NovoLOG] 0 unit SQ AD 07/21/16 [History] Magnesium Oxide [Mag-Ox] 400 mg PO DAILY 07/21/16 [History] Nitroglycerin [Nitrostat] 0.4 mg SL Q5M PRN 07/21/16 [History] Torsemide [Demadex] 60 mg PO BID 07/21/16 [History] raNITIdine HCl [Ranitidine HCl] 150 mg PO DAILY 07/21/16 [History] LORazepam [Ativan] 0.5 mg PO BID PRN #20 tablet 07/22/16 [Rx] Potassium Chloride [K-Tab ER] 40 meq PO BID 08/11/17 [History] Carvedilol [Coreg] 50 mg PO BIDWM 30 Days #60 tablet 08/13/17 [Rx] Hydralazine HCl 100 mg PO BID 02/24/18 [History] Apixaban [Eliquis] 5 mg PO BID 06/22/18 [History] Apresoline 1 PO TID 06/22/18 [History] Budesonide/Formoterol 160/4.5 [Symbicort 160/4.5] 2 puff IH BIDR 06/22/18 [History] Isosorbide MONOnitrate (24 HR) [Imdur] 60 mg PO DAILY 06/22/18 [History] NIFEdipine [Nifedipine ER] 90 mg PO BID 06/22/18 [History] Pantoprazole Sodium [Protonix] 40 mg PO 06/22/18 [History] Sertraline [Zoloft] 100 mg PO DAILY 06/22/18 [History] Spironolactone [Aldactone] 50 mg PO DAILY 06/22/18 [History] cloNIDine HCl [Clonidine HCl] 0.2 mg PO BID 06/22/18 [History] Allopurinol [Zyloprim 100 MG] 200 mg PO DAILY #60 tablet 06/24/18 [Rx] Azithromycin [Zithromax] 250 mg PO DAILY #4 tablet 06/24/18 [Rx] Cefuroxime PO [Ceftin] 500 mg PO Q12HR #8 tablet 06/24/18 [Rx] Lactobacillus [Culturelle] 1 each PO BID #8 cap.sprink 06/24/18 [Rx] Allergies/Adverse Reactions: Allergy/AdvReac Type Severity Reaction Status Date / Time lisinopril Allergy Severe Swelling Verified 02/24/18 11:43 of Lip/Tongue/Throat Date of admission: 06/23/18 12:25 Primary care physician: Maulik Ragsdale MD Consults: 06/22/18 18:54 Consult to Nurse Navigator [CONS] Routine Comment: - Constitutional Vitals: Temp Pulse Resp BP Pulse Ox 98.3 F 54 16 190/83 92 06/24/18 06:30 06/24/18 06:30 06/24/18 06:30 06/24/18 06:30 06/24/18 06:30 - Patient Status Disposition: Home, Self-Care Condition: Good - Discharge Instructions Follow Up With: Maulik Ragsdale MD [Primary Care Provider] - 1 week - Diet and Activity Activity: wear oxygen at night Diet: advance to your usual diet
[2018-06-24 09:53] LABS: Estimated Average Glucose 200 mg/dl; Hemoglobin A1C 8.6 %
== END 2018-06-24 10:00 | disposition home or self-care (01) | DRG 194 ==
LOC: INPPIK 13:52 → EMEROOPIK 13:52 → INPPIK 17:59
PROVIDERS: ADMIT Internal Medicine; ATTEND Internal Medicine

== ENCOUNTER 2018-09-06 11:23 | Observation (INO) ==
--- NOTE | 2018-09-06 12:05 | Emergency Department Note ---
Disposition Clinical Impression: Congestive heart failure Qualifiers: Heart failure type: unspecified Heart failure chronicity: acute on chronic Qualified Code(s): I50.9 - Heart failure, unspecified Dyspnea Qualifiers: Dyspnea type: unspecified Qualified Code(s): R06.00 - Dyspnea, unspecified Disposition: Admitted As Inpatient Condition: Fair Referrals: Maulik Ragsdale MD [Primary Care Provider] - Forms: ED Satisfaction Letter Time of Disposition: 14:44 SOB HPI - General Chief Complaint: ED Shortness of Breath/Dyspnea Stated Complaint: low oxygen sat, unable to urinate Time Seen by Provider: 09/06/18 11:39 Source: patient, family Mode of arrival: private vehicle Limitations: no limitations Nursing Notes Reviewed: Yes Vital Signs Reviewed: Yes - History of Present Illness Pt Subjective Complaint: shortness of breath Onset (ago): day(s) (About 3 days) Context: other (At rest and with exertion) Severity: severe Consistency/Duration: constant Improves with: rest Worsens with: exertion Known history of: COPD, congestive heart failure, recurrent pneumonia Associated symptoms: Denies: chest pain, fever Treatment prior to arrival: none Cough present: Yes Cough Frequency: Intermittent Sputum Amount: Scant - Related Data Home oxygen amount: 2 liters Home Medications Medication Instructions Recorded Confirmed Atorvastatin Calcium [Lipitor] 20 mg PO HS 12/06/15 06/22/18 Clopidogrel [Plavix] 75 mg PO DAILY 12/06/15 06/22/18 Isosorbide MONOnitrate (24 HR) 30 mg PO DAILY 12/06/15 02/24/18 [Imdur] Multivitamin [Multi-Day Vitamins] 1 each PO DAILY 12/06/15 02/24/18 Sertraline [Zoloft] 100 mg PO DAILY 12/06/15 06/22/18 Sucralfate [Carafate] 1 gm PO QID 12/06/15 06/22/18 Insulin Degludec [Tresiba 60 unit SQ HS 03/16/16 06/22/18 Flextouch U-100] Metoclopramide HCl 5 mg PO QID 03/16/16 06/22/18 Budesonide/Formoterol 160/4.5 2 puff IH BID 07/21/16 02/24/18 [Symbicort 160/4.5] Cyanocobalamin (Vitamin B-12) 1,000 mcg PO DAILY 07/21/16 06/22/18 [Vitamin B-12] Docusate Sodium [Dok] 100 mg PO TID 07/21/16 06/22/18 Ferrous Sulfate [Iron] 325 mg PO DAILY 07/21/16 06/22/18 Insulin ASPART [NovoLOG] 0 unit SQ AD 07/21/16 06/22/18 Magnesium Oxide [Mag-Ox] 400 mg PO DAILY 07/21/16 06/22/18 Nitroglycerin [Nitrostat] 0.4 mg SL Q5M PRN 07/21/16 02/24/18 Torsemide [Demadex] 60 mg PO BID 07/21/16 06/22/18 raNITIdine HCl [Ranitidine HCl] 150 mg PO DAILY 07/21/16 06/22/18 Potassium Chloride [K-Tab ER] 40 meq PO BID 08/11/17 06/22/18 Hydralazine HCl 100 mg PO BID 02/24/18 02/24/18 Apixaban [Eliquis] 5 mg PO BID 06/22/18 06/22/18 Apresoline 1 PO TID 06/22/18 Budesonide/Formoterol 160/4.5 2 puff IH BIDR 06/22/18 06/22/18 [Symbicort 160/4.5] Isosorbide MONOnitrate (24 HR) 60 mg PO DAILY 06/22/18 06/22/18 [Imdur] NIFEdipine [Nifedipine ER] 90 mg PO BID 06/22/18 06/22/18 Pantoprazole Sodium [Protonix] 40 mg PO 06/22/18 Sertraline [Zoloft] 100 mg PO DAILY 06/22/18 06/22/18 Spironolactone [Aldactone] 50 mg PO DAILY 06/22/18 06/22/18 cloNIDine HCl [Clonidine HCl] 0.2 mg PO BID 06/22/18 06/22/18 Previous Rx's Medication Instructions Recorded LORazepam [Ativan] 0.5 mg PO BID PRN #20 tablet 07/22/16 Carvedilol [Coreg] 50 mg PO BIDWM 30 Days #60 tablet 08/13/17 Allopurinol [Zyloprim 100 MG] 200 mg PO DAILY #60 tablet 06/24/18 Azithromycin [Zithromax] 250 mg PO DAILY #4 tablet 06/24/18 Cefuroxime PO [Ceftin] 500 mg PO Q12HR #8 tablet 06/24/18 Lactobacillus [Culturelle] 1 each PO BID #8 cap.trentink 06/24/18 Allergies Allergy/AdvReac Type Severity Reaction Status Date / Time lisinopril Allergy Severe Swelling Verified 02/24/18 11:43 of Lip/Tongue/Throat All systems ED: reviewed and negative except as stated. Constitutional: Reports: chills. Denies: fever ENT ED: Denies: ear pain, throat pain, congestion Cardiovascular: Denies: chest pain, palpitations Respiratory: Reports: dyspnea Gastrointestinal: Reports: abdominal pain (Gen.). Denies: vomiting, diarrhea Genitourinary: Reports: other (Complains of urinary retention) Musculoskeletal: Denies: back pain Integumentary: Denies: rash Neurological: Denies: headache Past Medical History - Past Medical History Attestation: Yes The following information was validated with the patient. Source: patient, old records reviewed, obtained from family, nursing notes reviewed Medical history: Reports: cancer, cirrhosis, CHF, COPD, coronary artery disease, diabetes, hyperlipidemia, hypertension, myocardial infarction, other Surgical history: Reports: angioplasty/stent, other Psychiatric history: Reports: depression - Social History Smoking Status: Current every day smoker Smokeless Tobacco Status: No Alcohol use: Reports: none Drug use: Reports: none Physical Exam - General Limitations: no limitations General appearance: alert, in no apparent distress - Head Head exam: atraumatic, normocephalic, normal inspection - Eye Eye exam: Present: normal appearance, PERRL, EOMI. Absent: scleral icterus, c onjunctival injection - ENT ENT exam: normal exam, normal oropharynx, mucous membranes moist, TM's normal bilaterally, normal external ear exam - Neck Neck exam: Present: normal inspection, full ROM, trachea midline. Absent: meningismus - Chest Chest inspection: Present: normal inspection, symmetric chest wall rise. Absent: tenderness - Respiratory Respiratory exam: Present: normal lung sounds bilaterally. Absent: respiratory distress, wheezes - Cardiovascular Cardiovascular exam: Present: regular rate, normal rhythm, normal heart sounds - Abdominal Exam Abdominal exam: Present: soft, tenderness, normal bowel sounds. Absent: distention Abdominal tenderness: Present: diffuse, mild - Extremities Exam Extremities exam: Present: pedal edema, other (Left leg amputation) - Neurological Exam Neurological exam: Present: alert, oriented X3. Absent: motor sensory deficit - Psychiatric Psychiatric exam: Present: normal affect, normal mood - Skin Skin exam: Present: warm, dry. Absent: rash Course Course Narrative: Patient presents with shortness of breath over the past few days. He has not at rest and is worse when he exerts himself. He is complaining of some chills right now although denied fevers or chills at home. He has had a minimal cough with no real productivity. Physical exam shows some edema to his right leg, he has a left leg amputation, but he has chronic edema to his legs. Lungs sound fine. Shortness of breath workup on the patient. Disposition will be based on diagnostic results and reevaluation. - Reevaluation(s) Reevaluation #1: Labs and x-ray look okay. CT shows no pericardial effusion but there is some evidence of CHF. Labs look okay except for an elevated BNP. Patient's symptoms sound severe enough that he should be admitted to the hospital and diuresed a little bit and reevaluated. I did discuss the case with the hospitalist. He accepted the patient for admission. Time: 14:43 - Consultations Consultation #1: Dr. Oshea, hospitalist - I discussed the case with the hospitalist. He accepted the patient for admission. Time: 14:42 Vital Signs Temperature 99.2 F 09/06/18 11:25 Pulse Rate 60 09/06/18 11:25 Respiratory Rate 26 09/06/18 11:25 Blood Pressure 166/57 09/06/18 11:25 O2 Sat by Pulse Oximetry 85 09/06/18 11:25 Temperature 99.2 F 09/06/18 11:25 Pulse Rate 60 09/06/18 13:40 Respiratory Rate 19 09/06/18 13:40 Blood Pressure 160/58 09/06/18 13:40 O2 Sat by Pulse Oximetry 92 09/06/18 13:40 Oxygen Delivery Oxygen Delivery Nasal Cannula Shortness of Breath/Dyspnea - Medical Records Medical records reviewed: Yes I reviewed the patient's medical records. - Lab Data Lab results reviewed: Yes I reviewed the patient's lab results. Result diagrams: 09/06/18 12:08 07/07/19 12:08 Lab Results 09/06/18 09/06/18 09/06/18 Range/Units 12:08 12:08 12:08 WBC 11.5 H (4.3-11.1) K/mcL RBC 4.53 (4.19-5.50) M/mcL Hgb 11.1 L (12.9-16.9) g/dL Hct 35.0 L (37.5-50.1) % MCV 77.3 L (83.0-100.0) fL MCH 24.5 L (28.0-33.3) pg MCHC 31.7 (31.6-35.5) g/dL RDW 16.8 H (11.5-14.5) % Plt Count 270 (140-400) K/mcL MPV 8.6 L (9.4-12.4) fL Immature Gran % 0.5 (0-4) % Seg Neutrophils % 75.3 % Lymphocytes % 15.9 % Monocytes % 5.3 % Eosinophils % 2.3 % Basophils % 0.7 % Neutrophils # 8.7 (1.6-8.9) K/mcL Lymphocytes # 1.8 (0.6-4.6) K/mcL Monocytes # 0.6 (0.0-1.3) K/mcL Eosinophils # 0.3 (0.0-0.6) K/mcL Basophils # 0.1 (0.0-0.2) K/mcL PT (9.4-12.1) Seconds INR APTT 41.1 H (26.0-36.0) Seconds Sodium 136 (136-145) mEq/L Potassium 4.5 (3.5-5.1) mEq/L Chloride 104 (98-107) mEq/L Carbon Dioxide 24 (23-29) mEq/L BUN 16 (8-23) mg/dL Creatinine 1.03 (0.70-1.30) mg/dL Est GFR ( Amer) > 60 (> 60) Est GFR (Non-Af Amer) > 60 (> 60) BUN/Creatinine Ratio 16 (6-26) Glucose 132 H (70-105) mg/dL Calculated Osmolality 285 (280-300) Lactic Acid (0.5-2.2) mmol/L Calcium 9.2 (8.6-10.3) mg/dL Total Bilirubin (0.3-1.0) mg/dL Direct Bilirubin (0.0-0.2) mg/dL Indirect Bilirubin (0.0-1.2) mg/dL AST (13-39) Units/L ALT (7-52) Units/L Alkaline Phosphatase (34-104) Units/L Troponin I (< 0.04) ng/mL B-Natriuretic Peptide (Less than 100) pg/mL Serum Total Protein (6.4-8.9) g/dL Albumin (3.5-5.7) g/dL Globulin (2.4-3.5) g/dL Albumin/Globulin Ratio (1.1-2.2) Urine Color (Yellow) Urine Clarity (Clear) Urine pH (5.0-8.0) pH Units Ur Specific [place] (1.010-1.025) Urine Protein (Neg-Trace) mg/dL Urine Glucose (UA) (Normal) mg/dL Urine Ketones (Negative) mg/dL Urine Blood (Negative) Urine Nitrite (Negative) Urine Bilirubin (Negative) Urine Urobilinogen (Normal) mg/dL Ur Leukocyte Esterase (Negative) Urine Microscopic RBC (0-3) per hpf Urine Microscopic WBC (0-3) per hpf Ur Squamous Epith Cells (None-Few) per lpf Urine Bacteria (None-Few) per hpf Hyaline Casts (None-Few) per lpf Urine Mucus (Few) Ur Culture Indicated? (NO) 09/06/18 09/06/18 09/06/18 Range/Units 12:08 12:08 12:08 WBC (4.3-11.1) K/mcL RBC (4.19-5.50) M/mcL Hgb (12.9-16.9) g/dL Hct (37.5-50.1) % MCV (83.0-100.0) fL MCH (28.0-33.3) pg MCHC (31.6-35.5) g/dL RDW (11.5-14.5) % Plt Count (140-400) K/mcL MPV (9.4-12.4) fL Immature Gran % (0-4) % Seg Neutrophils % % Lymphocytes % % Monocytes % % Eosinophils % % Basophils % % Neutrophils # (1.6-8.9) K/mcL Lymphocytes # (0.6-4.6) K/mcL Monocytes # (0.0-1.3) K/mcL Eosinophils # (0.0-0.6) K/mcL Basophils # (0.0-0.2) K/mcL PT 14.6 H (9.4-12.1) Seconds INR 1.3 APTT (26.0-36.0) Seconds Sodium (136-145) mEq/L Potassium (3.5-5.1) mEq/L Chloride (98-107) mEq/L Carbon Dioxide (23-29) mEq/L BUN (8-23) mg/dL Creatinine (0.70-1.30) mg/dL Est GFR ( Amer) (> 60) Est GFR (Non-Af Amer) (> 60) BUN/Creatinine Ratio (6-26) Glucose (70-105) mg/dL Calculated Osmolality (280-300) Lactic Acid (0.5-2.2) mmol/L Calcium (8.6-10.3) mg/dL Total Bilirubin 0.5 (0.3-1.0) mg/dL Direct Bilirubin 0.1 (0.0-0.2) mg/dL Indirect Bilirubin 0.4 (0.0-1.2) mg/dL AST 8 L (13-39) Units/L ALT 6 L (7-52) Units/L Alkaline Phosphatase 71 (34-104) Units/L Troponin I < 0.03 (< 0.04) ng/mL B-Natriuretic Peptide 544 H (Less than 100) pg/mL Serum Total Protein 7.1 (6.4-8.9) g/dL Albumin 3.7 (3.5-5.7) g/dL Globulin 3.4 (2.4-3.5) g/dL Albumin/Globulin Ratio 1.1 (1.1-2.2) Urine Color (Yellow) Urine Clarity (Clear) Urine pH (5.0-8.0) pH Units Ur Specific [place] (1.010-1.025) Urine Protein (Neg-Trace) mg/dL Urine Glucose (UA) (Normal) mg/dL Urine Ketones (Negative) mg/dL Urine Blood (Negative) Urine Nitrite (Negative) Urine Bilirubin (Negative) Urine Urobilinogen (Normal) mg/dL Ur Leukocyte Esterase (Negative) Urine Microscopic RBC (0-3) per hpf Urine Microscopic WBC (0-3) per hpf Ur Squamous Epith Cells (None-Few) per lpf Urine Bacteria (None-Few) per hpf Hyaline Casts (None-Few) per lpf Urine Mucus (Few) Ur Culture Indicated? (NO) 09/06/18 09/06/18 Range/Units 12:08 12:16 WBC (4.3-11.1) K/mcL RBC (4.19-5.50) M/mcL Hgb (12.9-16.9) g/dL Hct (37.5-50.1) % MCV (83.0-100.0) fL MCH (28.0-33.3) pg MCHC (31.6-35.5) g/dL RDW (11.5-14.5) % Plt Count (140-400) K/mcL MPV (9.4-12.4) fL Immature Gran % (0-4) % Seg Neutrophils % % Lymphocytes % % Monocytes % % Eosinophils % % Basophils % % Neutrophils # (1.6-8.9) K/mcL Lymphocytes # (0.6-4.6) K/mcL Monocytes # (0.0-1.3) K/mcL Eosinophils # (0.0-0.6) K/mcL Basophils # (0.0-0.2) K/mcL PT (9.4-12.1) Seconds INR APTT (26.0-36.0) Seconds Sodium (136-145) mEq/L Potassium (3.5-5.1) mEq/L Chloride (98-107) mEq/L Carbon Dioxide (23-29) mEq/L BUN (8-23) mg/dL Creatinine (0.70-1.30) mg/dL Est GFR ( Amer) (> 60) Est GFR (Non-Af Amer) (> 60) BUN/Creatinine Ratio (6-26) Glucose (70-105) mg/dL Calculated Osmolality (280-300) Lactic Acid 1.0 (0.5-2.2) mmol/L Calcium (8.6-10.3) mg/dL Total Bilirubin (0.3-1.0) mg/dL Direct Bilirubin (0.0-0.2) mg/dL Indirect Bilirubin (0.0-1.2) mg/dL AST (13-39) Units/L ALT (7-52) Units/L Alkaline Phosphatase (34-104) Units/L Troponin I (< 0.04) ng/mL B-Natriuretic Peptide (Less than 100) pg/mL Serum Total Protein (6.4-8.9) g/dL Albumin (3.5-5.7) g/dL Globulin (2.4-3.5) g/dL Albumin/Globulin Ratio (1.1-2.2) Urine Color Yellow (Yellow) Urine Clarity Clear (Clear) Urine pH 7.0 (5.0-8.0) pH Units Ur Specific [place] 1.015 (1.010-1.025) Urine Protein 100 H (Neg-Trace) mg/dL Urine Glucose (UA) Normal (Normal) mg/dL Urine Ketones Negative (Negative) mg/dL Urine Blood Negative (Negative) Urine Nitrite Negative (Negative) Urine Bilirubin Negative (Negative) Urine Urobilinogen Normal (Normal) mg/dL Ur Leukocyte Esterase Negative (Negative) Urine Microscopic RBC 3-5 H (0-3) per hpf Urine Microscopic WBC 0-3 (0-3) per hpf Ur Squamous Epith Cells Few (None-Few) per lpf Urine Bacteria Few (None-Few) per hpf Hyaline Casts Few (None-Few) per lpf Urine Mucus Few (Few) Ur Culture Indicated? YES A (NO) - Radiology Data Radiology results reviewed: Yes I reviewed the patient's radiology results. - EKG Data EKG attestation: Yes I reviewed and interpreted this EKG. EKG results narrative: Twelve-lead EKG performed at 11:32 AM. Ordered, reviewed and interpreted by ED physician shows him at a rate of 54. Normal axis. Reasonable R wave progression across the precordium. Nonspecific ST and T abnormalities in leads 1 and aVL. No obvious acute ischemic changes. MO interval is barely prolonged, rest of intervals are fine
[2018-09-06 12:22] LABS: Basophils # 0.1 K/mcL (0.0-0.2); Basophils % 0.7 %; Eosinophils # 0.3 K/mcL (0.0-0.6); Eosinophils % 2.3 %; Hemoglobin 11.1 g/dL (12.9-16.9); Immature Granulocytes % 0.5 % (0-4); Lymphocytes # 1.8 K/mcL (0.6-4.6); Lymphocytes % 15.9 %; Mean Corpuscular HGB Conc 31.7 g/dL (31.6-35.5); Mean Corpuscular Hemoglobin 24.5 pg (28.0-33.3); Mean Corpuscular Volume 77.3 fL (83.0-100.0); Mean Platelet Volume 8.6 fL (9.4-12.4); Monocytes # 0.6 K/mcL (0.0-1.3); Monocytes % 5.3 %; Neutrophils # 8.7 K/mcL (1.6-8.9); Platelet Count 270 K/mcL (140-400); Red Blood Count 4.53 M/mcL (4.19-5.50); Red Cell Distribution Width 16.8 % (11.5-14.5); Segmented Neutrophils % 75.3 %; White Blood Count 11.5 K/mcL (4.3-11.1)
[2018-09-06 12:27] LABS: Bilirubin,Urine Negative (Negative); Blood,Urine Negative (Negative); Clarity,Urine Clear (Clear); Color,Urine Yellow (Yellow); Glucose,Urine (UA) Normal (Normal); Ketones,Urine Negative (Negative); Leukocyte Esterase,Urine Negative (Negative); Nitrite,Urine Negative (Negative); Protein,Urine 100 mg/dL (Neg-Trace); Specific Gravity,Urine 1.015 (1.010-1.025); Urobilinogen,Urine Normal (Normal)
[2018-09-06 12:30] LABS: INR 1.3; Prothrombin Time 14.6 Seconds (9.4-12.1)
[2018-09-06 12:33] LABS: Bacteria,Urine Few per hpf (None-Few); Hyaline Casts,Urine Few per lpf (None-Few); Mucus,Urine Few (Few); Squamous Epithelial Cell,Urine Few per lpf (None-Few); WBC,Urine 0-3 per hpf (0-3)
[2018-09-06 12:41] LABS: Alanine Aminotransferase 6 Units/L (7-52); Albumin 3.7 g/dL (3.5-5.7); Albumin/Globulin Ratio 1.1 (1.1-2.2); Alkaline Phosphatase 71 Units/L (34-104); Aspartate Amino Transferase 8 Units/L (13-39); Bilirubin,Direct 0.1 mg/dL (0.0-0.2); Bilirubin,Indirect 0.4 mg/dL (0.0-1.2); Bilirubin,Total 0.5 mg/dL (0.3-1.0); Globulin 3.4 g/dL (2.4-3.5); Total Protein 7.1 g/dL (6.4-8.9); Troponin I < 0.03 ng/mL (< 0.04)
[2018-09-06 12:50] LABS: BUN/Creatinine Ratio 16 (6-26); Blood Urea Nitrogen 16 mg/dL (8-23); Calcium 9.2 mg/dL (8.6-10.3); Carbon Dioxide 24 mEq/L (23-29); Chloride 104 mEq/L (98-107); Glucose 132 mg/dL (70-105); Osmolality,Calculated 285 (280-300); Potassium 4.5 mEq/L (3.5-5.1); Sodium 136 mEq/L (136-145); eGFR For African Americans > 60 (> 60); eGFR For Non-African Americans > 60 (> 60)
[2018-09-06] MEDS ORDERED: Isovue-370 500 ML BOTTLE IVP ONE (13:04)
[2018-09-06] MEDS ORDERED: Furosemide 40 MG/4 ML VIAL IVP ONE (14:55)
[2018-09-06] MEDS ORDERED: Naloxone 0.4 MG/ML INJ IVP PRN (14:55)
[2018-09-06] MEDS ORDERED: D5% in Water 1,000 ML IVC PRN (16:08)
[2018-09-06] MEDS ORDERED: *HR* Dextrose 50 % in Water (Syg) 50 ML SYRINGE IVP PRN (16:08)
[2018-09-06] MEDS ORDERED: Dextrose Gel 15 GM/37.5 ML TUBE PO PRN ×2 (16:08)
[2018-09-06] MEDS: Nicotine 21 MG PATCH.TD24 TD SCH (17:05)
[2018-09-06] MEDS: Insulin LISPRO 300 UNITS/3 ML VIAL SQ SCH (17:05)
--- NOTE | 2018-09-06 17:45 | Internal Med History&Physical ---
Date of Encounter: 09/06/18 Time of Encounter: 17:15 Assessment and Plan (1) Acute on chronic diastolic (congestive) heart failure Current visit: No Status: Acute BN peptide in emergency room was elevated at 544. Troponin was normal at < 0.03. Continue Aldactone, hydralazine, isosorbide, and Coreg. He was given IV Lasix in emergency room. Oral Bumex will be started. (2) Dyspnea Current visit: Yes Status: Acute Possibly multifactorial. Treatment for heart failure as above. Elevated WBC with borderline left shift will be rechecked in a.m. Qualifiers: Dyspnea type: shortness of breath Qualified Code(s): R06.02 - Shortness of breath; R06.00 - Dyspnea, unspecified; R06.01 - Orthopnea (3) Anemia Current visit: No Status: Chronic He received iron dextran during his June 2018 hospitalization. Anemia testing will be done in a.m. Qualifiers: Anemia type: iron deficiency Iron deficiency anemia type: unspecified iron deficiency Qualified Code(s): D50.9 - Iron deficiency anemia, unspecified (4) COPD (chronic obstructive pulmonary disease) Current visit: No Status: Chronic Continue Symbicort. Albuterol nebs will be ordered for prn use. Qualifiers: COPD type: unspecified COPD Qualified Code(s): J44.9 - Chronic obstructive pulmonary disease, unspecified (5) Leukocytosis Current visit: Yes Status: Acute Possible infection with borderline left shift on differential. Recheck in a.m. Pro-calcitonin will be ordered also. Qualifiers: Leukocytosis type: unspecified Qualified Code(s): D72.829 - Elevated white blood cell count, unspecified (6) Gout Current visit: No Status: Chronic Recheck uric acid level in a.m. Qualifiers: Gout site: unspecified site Gout etiology: unspecified cause Chronicity: chronic Presence of tophus: without tophus Qualified Code(s): M1A.9XX0 - Chronic gout, unspecified, without tophus (tophi) (7) DM type 1 (diabetes mellitus, type 1) Current visit: Yes Status: Chronic Continue basal insulin. Accu-Cheks with SSI will be done. Hemoglobin A1c will be checked in a.m. Qualifiers: Diabetes mellitus complication status: without complication Qualified Code(s): E10.9 - Type 1 diabetes mellitus without complications Internal Medicine - H&P: HPI Chief complaint: Cough and dyspnea Admitted From: Emergency Dept Plans for Post Hospital Care: Home History of present illness: Mr. Jimenez is a 68 year old male who came to emergency room complaining of cough and dyspnea onset 1-2 weeks previously. He states the cough was productive of clear and occasionally yellow sputum. He also reports occasional fevers and chills. He denies hemoptysis, vomiting or diarrhea. He was evaluated in emergency room and admitted to [facility] floor for ongoing care needs. Respiratory history is significant for having smoked since age 13 up to 2 packs per day. He has a diagnosis of COPD and uses oxygen at bedtime and when necessary during the daytime. He has been diagnosed with KHANG but does not use CPAP/BiPAP. He has had pneumonia multiple times in the past. Past Med Surg Social Fam HX - Past Medical History Medical history: cancer, cirrhosis, CHF, COPD, coronary artery disease, diabetes, hyperlipidemia, hypertension, myocardial infarction, other Additional medical history: Diabetes type 1. liver cancer Psychiatric history: depression - Past Surgical History Surgical History: angioplasty/stent, other Additional surgical history: LAKA for ulcers, cardiac cath with stents, PID with stents, - Social History Smoking Status: Current every day smoker Smokeless Tobacco Status: No Alcohol use: none Drug use: none - Family History Brother Hx Family Cancer: Yes (lung) Internal Medicine - H&P: Meds Atorvastatin Calcium [Lipitor] 20 mg PO HS 12/06/15 [History] Clopidogrel [Plavix] 75 mg PO DAILY 12/06/15 [History] Multivitamin [Multi-Day Vitamins] 1 each PO DAILY 12/06/15 [History] Sucralfate [Carafate] 1 gm PO QID 12/06/15 [History] Insulin Degludec [Tresiba Flextouch U-100] 60 unit SQ HS 03/16/16 [History] Metoclopramide HCl 5 mg PO QID 03/16/16 [History] Cyanocobalamin (Vitamin B-12) [Vitamin B-12] 1,000 mcg PO DAILY 07/21/16 [History] Docusate Sodium [Dok] 100 mg PO TID 07/21/16 [History] Ferrous Sulfate [Iron] 325 mg PO DAILY 07/21/16 [History] Insulin ASPART [NovoLOG] 0 unit SQ AD 07/21/16 [History] Magnesium Oxide [Mag-Ox] 400 mg PO DAILY 07/21/16 [History] Nitroglycerin [Nitrostat] 0.4 mg SL Q5M PRN 07/21/16 [History] Torsemide [Demadex] 60 mg PO BID 07/21/16 [History] raNITIdine HCl [Ranitidine HCl] 150 mg PO DAILY 07/21/16 [History] LORazepam [Ativan] 0.5 mg PO BID PRN #20 tablet 07/22/16 [Rx] Potassium Chloride [K-Tab ER] 40 meq PO BID 08/11/17 [History] Carvedilol [Coreg] 50 mg PO BIDWM 30 Days #60 tablet 08/13/17 [Rx] Hydralazine HCl 150 mg PO TID 02/24/18 [History] Apixaban [Eliquis] 5 mg PO BID 06/22/18 [History] Budesonide/Formoterol 160/4.5 [Symbicort 160/4.5] 2 puff IH BIDR 06/22/18 [History] Isosorbide MONOnitrate (24 HR) [Imdur] 120 mg PO DAILY 06/22/18 [History] NIFEdipine [Nifedipine ER] 90 mg PO BID 06/22/18 [History] Pantoprazole Sodium [Protonix] 40 mg PO DAILY 06/22/18 [History] Sertraline [Zoloft] 100 mg PO DAILY 06/22/18 [History] Spironolactone [Aldactone] 50 mg PO DAILY 06/22/18 [History] cloNIDine HCl [Clonidine HCl] 0.2 mg PO BID 06/22/18 [History] Allopurinol [Zyloprim 100 MG] 100 mg PO DAILY 09/06/18 [History] Allergy/AdvReac Type Severity Reaction Status Date / Time lisinopril Allergy Severe Swelling Verified 02/24/18 11:43 of Lip/Tongue/Throat All Systems PM: A 10-system review of systems was performed and is negative for pertinent findings except as documented above in the HPI. Review of systems: Review of systems from his June 2018 [facility] hospitalization were reviewed and revised as below. Gen.: He states his weight has been stable for several months Cardiovascular: He has history of long-standing resistant hypertension requiring multiple medications for treatment. He has ASHD status post MIs at age 48 and 63. He reports numerous heart caths with most recent approximately 2012. He states he has had "20 stents". He reports left carotid endarterectomy approximately 2012. He reports a diagnosis of heart failure. Echocardiogram 08/11/2017 showed LVEF of 55-60%. The interventricular septum and posterior wall thickness measurements were 1.31 cm each. There was LAE at 5.20 cm. The E/A ratio was 1.3. No significant valvular abnormalities were seen. He reports a pulmonary embolism January 2018 and is on Eliquis. Respiratory: As per history of present illness GI: He has had cholecystectomy. He has NAFLD and occasional GERD symptoms. He denies other disorders of his liver or exocrine pancreas. : He denies hematuria dysuria or kidney stones Neurologic: He denies large distribution strokes or seizures. Endocrine: He was diagnosed with DM 1 at age 28. He has hypertriglyceridemia. He denies known thyroid disease. Hematology/oncology: He reports being diagnosed with Hodgkin's lymphoma approximately 2015. He has received chemotherapy and states he is in remission. He follows with an oncologist every 6 months in [place]. He denies other known internal malignancies. He was unaware he had anemia on all labs since May 2015. 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 He has history of gout. He denies other bone joint or muscle disorders. - Constitutional Vitals: Temp Pulse Resp BP Pulse Ox 98.7 F 62 19 158/48 93 09/06/18 15:10 09/06/18 15:10 09/06/18 15:10 09/06/18 15:10 09/06/18 15:10 Exam: Gen.: He is a well-developed well-nourished male resting comfortably in bed who appears in no severe distress HEENT: Head is atraumatic and normocephalic. Eyes: EOMI. There is no scleral icterus. Mouth: Mucosa is moist. Neck: Supple and nontender. There is no thyromegaly or adenopathy noted. Heart: Regular without murmurs gallops or ectopics Lungs: No wheezes or crackles are heard. He has diminished breath sounds diffusely. Abdomen: Soft and nontender. No masses or guarding are noted. Extremities: He has trace to 1+ edema of the dorsum of the right foot and lower leg. There is no cyanosis noted. The left leg has well-healed AKA. Neurologic: Mental status: He is talkative and a good historian. Cranial nerves: Smile is symmetric. Forehead wrinkles bilaterally. Tongue protrudes mi dline. EOMI. Motor: There is no pronator drift. Cerebellar: Finger to nose is intact bilaterally. Skin: Warm and dry Internal Med - H&P Results - Labs CBC & Chem 7: 09/06/18 12:08 09/06/18 12:08 Labs: Short CBC 09/06/18 Range/Units 12:08 WBC 11.5 H (4.3-11.1) K/mcL Hgb 11.1 L (12.9-16.9) g/dL Hct 35.0 L (37.5-50.1) % Plt Count 270 (140-400) K/mcL Neutrophils # 8.7 (1.6-8.9) K/mcL BMP 09/06/18 12:08 Sodium 136 Potassium 4.5 Chloride 104 Carbon Dioxide 24 BUN 16 Creatinine 1.03 Glucose 132 H Calcium 9.2 Cardiac Enzymes 09/06/18 Range/Units 12:08 Troponin I < 0.03 (< 0.04) ng/mL Liver Function 09/06/18 Range/Units 12:08 Total Bilirubin 0.5 (0.3-1.0) mg/dL Direct Bilirubin 0.1 (0.0-0.2) mg/dL AST 8 L (13-39) Units/L ALT 6 L (7-52) Units/L Alkaline Phosphatase 71 (34-104) Units/L Albumin 3.7 (3.5-5.7) g/dL Urine 09/06/18 Range/Units 12:16 Urine Color Yellow (Yellow) Urine Clarity Clear (Clear) Urine pH 7.0 (5.0-8.0) pH Units Ur Specific [place] 1.015 (1.010-1.025) Urine Protein 100 H (Neg-Trace) mg/dL Urine Glucose (UA) Normal (Normal) mg/dL - Impressions ITS Impressions Chest X-Ray 09/06/18 12:01 IMPRESSION: Limited lordotic chest. No acute cardiopulmonary disease. D/ / Chay Chaudhry MD / Chay Chaudhry MD Interpreting Provider: Chay Chaudhry MD Chest CTA 09/06/18 13:04 IMPRESSION: 1. No CT evidence of a pulmonary embolism. 2. Findings are suggestive of mild CHF, including cardiomegaly, small bilateral pleural effusions, and bibasilar interstitial pulmonary edema. 3. Mild bibasilar airspace consolidation likely reflects passive atelectasis, less likely aspiration or pneumonia. 4. Interval progression of mediastinal and bilateral hilar lymphadenopathy, most likely benign and reactive in etiology given the patient's lung findings. However, consider short-term chest CT follow-up in 3-6 months to ensure stability or resolution of lymphadenopathy as lymphadenopathy or lymphoma are not excluded. D/ /06/2018 14:03:39 Soren Gant MD / patricia Interpreting Provider: Soren Gant MD
[2018-09-06] MEDS ORDERED: *HR* LORazepam 0.5 MG TABLET PO PRN (18:03)
[2018-09-06] MEDS ORDERED: Ondansetron Oral Soln 2 MG/2.5 ML ORAL.SYG PO PRN (18:03)
[2018-09-06] MEDS: Bumetanide 1 MG TABLET PO SCH (19:14)
[2018-09-06] MEDS ORDERED: Insulin LISPRO 300 UNITS/3 ML VIAL SQ SCH (21:00)
[2018-09-06] MEDS: Budesonide/Formoterol 160/4.5 1 PUFF INH IH SCH (22:57)
[2018-09-06] MEDS: cloNIDine HCl 0.1 MG TABLET PO SCH (23:15)
[2018-09-06] MEDS: Apixaban 5 MG TABLET PO SCH (23:15)
[2018-09-06] MEDS: Sucralfate 1 GM TABLET PO SCH (23:15)
[2018-09-06] MEDS: hydrALAZINE 25 MG TABLET PO SCH (23:16)
[2018-09-07 06:42] LABS: Basophils # 0.1 K/mcL (0.0-0.2); Basophils % 0.7 %; Eosinophils # 0.2 K/mcL (0.0-0.6); Eosinophils % 2.3 %; Hematocrit 34.6 % (37.5-50.1); Immature Granulocytes % 0.4 % (0-4); Lymphocytes # 1.2 K/mcL (0.6-4.6); Lymphocytes % 15.9 %; Mean Corpuscular HGB Conc 31.8 g/dL (31.6-35.5); Mean Corpuscular Hemoglobin 24.9 pg (28.0-33.3); Mean Corpuscular Volume 78.3 fL (83.0-100.0); Mean Platelet Volume 9.2 fL (9.4-12.4); Monocytes # 0.5 K/mcL (0.0-1.3); Monocytes % 6.6 %; Neutrophils # 5.5 K/mcL (1.6-8.9); Platelet Count 240 K/mcL (140-400); Red Blood Count 4.42 M/mcL (4.19-5.50); Red Cell Distribution Width 16.6 % (11.5-14.5); Segmented Neutrophils % 74.1 %; White Blood Count 7.4 K/mcL (4.3-11.1)
[2018-09-07 07:09] LABS: Uric Acid 6.1 mg/dL (2.3-7.6)
[2018-09-07 07:10] LABS: BUN/Creatinine Ratio 13 (6-26); Blood Urea Nitrogen 14 mg/dL (8-23); Calcium 8.9 mg/dL (8.6-10.3); Carbon Dioxide 27 mEq/L (23-29); Chloride 105 mEq/L (98-107); Glucose 180 mg/dL (70-105); Osmolality,Calculated 293 (280-300); Potassium 4.1 mEq/L (3.5-5.1); Sodium 139 mEq/L (136-145); eGFR For African Americans > 60 (> 60); eGFR For Non-African Americans > 60 (> 60)
[2018-09-07] MEDS ORDERED: Isosorbide MONOnitrate (24 HR) 60 MG TAB.ER.24H PO SCH (09:00)
[2018-09-07] MEDS ORDERED: NIFEdipine XL (24 HR) 30 MG TAB.ER.24 PO SCH (09:00)
[2018-09-07] MEDS ORDERED: Spironolactone 25 MG TABLET PO SCH (09:00)
[2018-09-07] MEDS ORDERED: Ondansetron ODT 4 MG TAB.RAPDIS PO PRN (09:15)
[2018-09-07] MEDS: cloNIDine HCl 0.1 MG TABLET PO SCH (09:16)
[2018-09-07] MEDS: Apixaban 5 MG TABLET PO SCH (09:16)
[2018-09-07] MEDS: Bumetanide 1 MG TABLET PO SCH (09:16)
[2018-09-07] MEDS: hydrALAZINE 25 MG TABLET PO SCH (09:16)
[2018-09-07] MEDS: Nicotine 21 MG PATCH.TD24 TD SCH (09:17)
[2018-09-07] MEDS: Insulin LISPRO 300 UNITS/3 ML VIAL SQ SCH ×2 (09:21→12:13)
[2018-09-07] MEDS: Sucralfate 1 GM TABLET PO SCH ×2 (09:26→12:12)
[2018-09-07] MEDS: Budesonide/Formoterol 160/4.5 1 PUFF INH IH SCH (09:50)
--- NOTE | 2018-09-07 11:12 | Discharge Summary ---
Orders not resulted at time of discharge: Pending orders 09/06/18 12:01 EKG [ECG 12 lead ECG] [ECG] Stat 09/06/18 12:08 Culture,Blood [BC] Stat 09/06/18 12:16 Culture,Urine [RM] Stat 09/07/18 06:15 Hgb A1C AM 0400 Date of Encounter: 09/07/18 Time of Encounter: 10:58 - Discharge Diagnosis (1) Acute on chronic diastolic (congestive) heart failure Priority: Primary Status: Acute (2) Dyspnea Priority: Secondary Status: Acute Qualifiers: Dyspnea type: shortness of breath Qualified Code(s): R06.02 - Shortness of breath; R06.00 - Dyspnea, unspecified; R06.01 - Orthopnea (3) Anemia Priority: Secondary Status: Chronic Qualifiers: Anemia type: iron deficiency Iron deficiency anemia type: unspecified iron deficiency Qualified Code(s): D50.9 - Iron deficiency anemia, unspecified (4) COPD (chronic obstructive pulmonary disease) Priority: Secondary Status: Chronic Qualifiers: COPD type: unspecified COPD Qualified Code(s): J44.9 - Chronic obstructive pulmonary disease, unspecified (5) Leukocytosis Priority: Secondary Status: Resolved Qualifiers: Leukocytosis type: unspecified Qualified Code(s): D72.829 - Elevated white blood cell count, unspecified (6) Gout Priority: Secondary Status: Chronic Qualifiers: Gout site: unspecified site Gout etiology: unspecified cause Chronicity: chronic Presence of tophus: without tophus Qualified Code(s): M1A.9XX0 - Chronic gout, unspecified, without tophus (tophi) (7) DM type 1 (diabetes mellitus, type 1) Priority: Secondary Status: Chronic Qualifiers: Diabetes mellitus complication status: without complication Qualified Code(s): E10.9 - Type 1 diabetes mellitus without complications Hospital course: Mr. Jimenez is a 68 year old male who came to emergency room complaining of cough and dyspnea onset 1-2 weeks previously. He states the cough was productive of clear and occasionally yellow sputum. He also reports occasional fevers and chills. He denies hemoptysis, vomiting or diarrhea. He was evaluated in emergency room and admitted to [facility] floor for ongoing care needs. Initial orders were written by the emergency room physician. I saw him on September 06 and performed a history and physical. He was given IV Lasix in emergency room. Follow-up labs on September 07 showed CBC normal at 7.4 with no left shift seen. BN peptide improved to 487. He felt clinically improved and stable for discharge home. Anemia testing showed iron 22, transferrin saturation 14%, transferrin 114, ferritin 322, B12 367, and folate 18. He will continue ferrous sulfate. Ascorbic acid will be added to improve absorption of ferrous sulfate. Blood pressure remained above desirable level. Clonidine will be increased to 0.3 mg twice a day. His PCP can monitor the pressure and adjust medications as needed. He will follow with his PCP Dr. Maulik Ragsdale within 1 week. - Time Spent with Patient Total time spent providing and/or coordinating discharge services: - Discharge Medications Prescriptions: New Ascorbic Acid [C-500] 500 mg PO DAILY #30 tablet cloNIDine HCl [Clonidine HCl] 0.3 mg PO BID #60 tab Continued Multivitamin [Multi-Day Vitamins] 1 each PO DAILY Sucralfate [Carafate] 1 gm PO QID Clopidogrel [Plavix] 75 mg PO DAILY Atorvastatin Calcium [Lipitor] 20 mg PO HS Metoclopramide HCl 5 mg PO QID Insulin Degludec [Tresiba Flextouch U-100] 60 unit SQ HS Torsemide [Demadex] 60 mg PO BID Cyanocobalamin (Vitamin B-12) [Vitamin B-12] 1,000 mcg PO DAILY raNITIdine HCl [Ranitidine HCl] 150 mg PO DAILY Magnesium Oxide [Mag-Ox] 400 mg PO DAILY Docusate Sodium [Dok] 100 mg PO TID Nitroglycerin [Nitrostat] 0.4 mg SL Q5M PRN PRN Reason: Chest Pain Insulin ASPART [NovoLOG] 0 unit SQ AD LORazepam [Ativan] 0.5 mg PO BID PRN #20 tablet PRN Reason: Anxiety Potassium Chloride [K-Tab ER] 40 meq PO BID Carvedilol [Coreg] 50 mg PO BIDWM 30 Days #60 tablet Hydralazine HCl 150 mg PO TID NIFEdipine [Nifedipine ER] 90 mg PO BID Budesonide/Formoterol 160/4.5 [Symbicort 160/4.5] 2 puff IH BIDR Sertraline [Zoloft] 100 mg PO DAILY Isosorbide MONOnitrate (24 HR) [Imdur] 120 mg PO DAILY Spironolactone [Aldactone] 50 mg PO DAILY Apixaban [Eliquis] 5 mg PO BID Pantoprazole Sodium [Protonix] 40 mg PO DAILY Allopurinol [Zyloprim 100 MG] 100 mg PO DAILY Ferrous Sulfate [Iron] 325 mg PO DAILY #0 Discontinued cloNIDine HCl [Clonidine HCl] 0.2 mg PO BID Home Medications: Atorvastatin Calcium [Lipitor] 20 mg PO HS 12/06/15 [History] Clopidogrel [Plavix] 75 mg PO DAILY 12/06/15 [History] Multivitamin [Multi-Day Vitamins] 1 each PO DAILY 12/06/15 [History] Sucralfate [Carafate] 1 gm PO QID 12/06/15 [History] Insulin Degludec [Tresiba Flextouch U-100] 60 unit SQ HS 03/16/16 [History] Metoclopramide HCl 5 mg PO QID 03/16/16 [History] Cyanocobalamin (Vitamin B-12) [Vitamin B-12] 1,000 mcg PO DAILY 07/21/16 [History] Docusate Sodium [Dok] 100 mg PO TID 07/21/16 [History] Insulin ASPART [NovoLOG] 0 unit SQ AD 07/21/16 [History] Magnesium Oxide [Mag-Ox] 400 mg PO DAILY 07/21/16 [History] Nitroglycerin [Nitrostat] 0.4 mg SL Q5M PRN 07/21/16 [History] Torsemide [Demadex] 60 mg PO BID 07/21/16 [History] raNITIdine HCl [Ranitidine HCl] 150 mg PO DAILY 07/21/16 [History] LORazepam [Ativan] 0.5 mg PO BID PRN #20 tablet 07/22/16 [Rx] Potassium Chloride [K-Tab ER] 40 meq PO BID 08/11/17 [History] Carvedilol [Coreg] 50 mg PO BIDWM 30 Days #60 tablet 08/13/17 [Rx] Hydralazine HCl 150 mg PO TID 02/24/18 [History] Apixaban [Eliquis] 5 mg PO BID 06/22/18 [History] Budesonide/Formoterol 160/4.5 [Symbicort 160/4.5] 2 puff IH BIDR 06/22/18 [History] Isosorbide MONOnitrate (24 HR) [Imdur] 120 mg PO DAILY 06/22/18 [History] NIFEdipine [Nifedipine ER] 90 mg PO BID 06/22/18 [History] Pantoprazole Sodium [Protonix] 40 mg PO DAILY 06/22/18 [History] Sertraline [Zoloft] 100 mg PO DAILY 06/22/18 [History] Spironolactone [Aldactone] 50 mg PO DAILY 06/22/18 [History] Allopurinol [Zyloprim 100 MG] 100 mg PO DAILY 09/06/18 [History] Ascorbic Acid [C-500] 500 mg PO DAILY #30 tablet 09/07/18 [Rx] Ferrous Sulfate [Iron] 325 mg PO DAILY #0 09/07/18 [Rx] cloNIDine HCl [Clonidine HCl] 0.3 mg PO BID #60 tab 09/07/18 [Rx] Allergies/Adverse Reactions: Allergy/AdvReac Type Severity Reaction Status Date / Time lisinopril Allergy Severe Swelling Verified 02/24/18 11:43 of Lip/Tongue/Throat Date of admission: 09/06/18 14:49 Primary care physician: Maulik Ragsdale MD - Constitutional Vitals: Temp Pulse Resp BP Pulse Ox 98.7 F 58 18 202/76 93 09/07/18 09:57 09/07/18 09:57 09/07/18 09:57 09/07/18 09:57 09/07/18 09:57 - Patient Status Disposition: Home, Self-Care Condition: Fair - Discharge Instructions Follow Up With: Maulik Ragsdale MD [Primary Care Provider] - 1 week - Diet and Activity Activity: resume usual activities as tolerated, wear oxygen at night Diet: diabetic diet
[2018-09-07 11:50] VITALS: BP 189/76
[2018-09-07 13:02] LABS: Estimated Average Glucose 189 mg/dl
--- NOTE | 2018-09-07 22:37 | Electrocardiograph Report ---
[place] [id number] Test Date: 2018-09-06 Pat Name: Sukhdev Jimenez Department: EDP-16 Room: [facility] Gender: M Product Info Specialist: : [id number] Requested By: Jone Schmitz Order Number: [id number] Reading MD: Rik Packer Measurements Intervals [place] Rate: 54 P: 10 LA: 171 QRS: 34 QRSD: 114 T: 97 QT: 455 QTc: 432 Interpretive Statements Sinus bradycardia with atrial premature complex Borderline intraventricular conduction delay Nonspecific T abnormalities, lateral leads Electronically Signed On 09-07-2018 22:35:53 EDT by Rik Packer
== END 2018-09-07 13:00 | disposition home or self-care (01) ==
LOC: EMEROOPIK 11:23 → INPPIK 11:23
PROVIDERS: ADMIT Internal Medicine; ATTEND Internal Medicine

== ENCOUNTER 2018-11-17 17:43 | Inpatient (IN) ==
[2018-11-17] MEDS ORDERED: 0.9 % Sodium Chloride 1,000 ML IVC ONE (18:17)
--- NOTE | 2018-11-17 18:27 | Emergency Department Note ---
Disposition Clinical Impression: Urinary tract infection Qualifiers: Urinary tract infection type: site unspecified Hematuria presence: without hematuria Qualified Code(s): N39.0 - Urinary tract infection, site not specified Disposition: Admitted As Inpatient Condition: Fair Referrals: Sky Carreno MD [Primary Care Provider] - Forms: ED Satisfaction Letter, Work/School Release Time of Disposition: 20:40 Male Urogenital HPI - General Chief complaint: ED General Medical Stated complaint: sts cant breath, cant pee, just dribbles Time Seen by Provider: 11/17/18 18:11 Source: patient Mode of arrival: private vehicle Limitations: no limitations Nursing Notes Reviewed: Yes Vital Signs Reviewed: Yes - History of Present Illness Pt Subjective Complaint: urinary retention Onset (ago): day(s) (2 days) Duration: constant Severity: severe (He is able to dribble a little bit) Improves with: none Worsens with: none Reports: fever - Related Data Home Medications Medication Instructions Recorded Confirmed Atorvastatin Calcium [Lipitor] 20 mg PO HS 12/06/15 09/06/18 Clopidogrel [Plavix] 75 mg PO DAILY 12/06/15 09/06/18 Multivitamin [Multi-Day Vitamins] 1 each PO DAILY 12/06/15 09/06/18 Sucralfate [Carafate] 1 gm PO QID 12/06/15 09/06/18 Insulin Degludec [Tresiba 60 unit SQ HS 03/16/16 09/06/18 Flextouch U-100] Metoclopramide HCl 5 mg PO QID 03/16/16 09/06/18 Cyanocobalamin (Vitamin B-12) 1,000 mcg PO DAILY 07/21/16 09/06/18 [Vitamin B-12] Docusate Sodium [Dok] 100 mg PO TID 07/21/16 09/06/18 Insulin ASPART [NovoLOG] 0 unit SQ AD 07/21/16 06/22/18 Magnesium Oxide [Mag-Ox] 400 mg PO DAILY 07/21/16 09/06/18 Nitroglycerin [Nitrostat] 0.4 mg SL Q5M PRN 07/21/16 09/06/18 Torsemide [Demadex] 60 mg PO BID 07/21/16 09/06/18 raNITIdine HCl [Ranitidine HCl] 150 mg PO DAILY 07/21/16 09/06/18 Potassium Chloride [K-Tab ER] 40 meq PO BID 08/11/17 09/06/18 Hydralazine HCl 150 mg PO TID 02/24/18 02/24/18 Apixaban [Eliquis] 5 mg PO BID 06/22/18 09/06/18 Budesonide/Formoterol 160/4.5 2 puff IH BIDR 06/22/18 09/06/18 [Symbicort 160/4.5] Isosorbide MONOnitrate (24 HR) 120 mg PO DAILY 06/22/18 09/06/18 [Imdur] NIFEdipine [Nifedipine ER] 90 mg PO BID 06/22/18 09/06/18 Pantoprazole Sodium [Protonix] 40 mg PO DAILY 06/22/18 09/06/18 Sertraline [Zoloft] 100 mg PO DAILY 06/22/18 09/06/18 Spironolactone [Aldactone] 50 mg PO DAILY 06/22/18 09/06/18 Allopurinol [Zyloprim 100 MG] 100 mg PO DAILY 09/06/18 09/06/18 Previous Rx's Medication Instructions Recorded LORazepam [Ativan] 0.5 mg PO BID PRN #20 tablet 07/22/16 Carvedilol [Coreg] 50 mg PO BIDWM 30 Days #60 tablet 08/13/17 Ascorbic Acid [C-500] 500 mg PO DAILY #30 tablet 09/07/18 Ferrous Sulfate [Iron] 325 mg PO DAILY #0 09/07/18 cloNIDine HCl [Clonidine HCl] 0.3 mg PO BID #60 tab 09/07/18 Allergies Allergy/AdvReac Type Severity Reaction Status Date / Time lisinopril Allergy Severe Swelling Verified 02/24/18 11:43 of Lip/Tongue/Throat All systems ED: reviewed and negative except as stated. Constitutional: Reports: fever, chills ENT ED: Denies: ear pain, throat pain, congestion Cardiovascular: Denies: chest pain, palpitations Respiratory: Reports: dyspnea (Patient has chronic shortness of breath and is supposed to be on oxygen 24 hours a day but he does not use it during the daytime because he smokes during the daytime.) Gastrointestinal: Denies: abdominal pain, vomiting, diarrhea Genitourinary: Reports: urgency, other (Dribbling) Integumentary: Denies: rash Neurological: Denies: headache Past Medical History - Past Medical History Attestation: Yes The following information was validated with the patient. Source: patient, old records reviewed, obtained from family, nursing notes reviewed Medical history: Reports: cancer, cirrhosis, CHF, COPD, coronary artery disease, diabetes, hyperlipidemia, hypertension, myocardial infarction, other Surgical history: Reports: angioplasty/stent, other Psychiatric history: Reports: depression - Social History Smoking Status: Current every day smoker Smokeless Tobacco Status: No Alcohol use: Reports: none Drug use: Reports: none Physical Exam - General Limitations: no limitations General appearance: alert, in no apparent distress - Head Head exam: atraumatic, normocephalic, normal inspection - Eye Eye exam: Present: normal appearance, PERRL, EOMI. Absent: scleral icterus, conjunctival injection - ENT ENT exam: normal exam, normal oropharynx, mucous membranes moist, normal external ear exam - Neck Neck exam: Present: normal inspection, full ROM - Chest Chest inspection: Present: normal inspection, symmetric chest wall rise. Absent: tenderness - Respiratory Respiratory exam: Present: normal lung sounds bilaterally. Absent: respiratory distress, wheezes - Cardiovascular Cardiovascular exam: Present: regular rate, normal rhythm, normal heart sounds - Abdominal Exam Abdominal Exam: Present: soft, Non-Tender, normal bowel sounds. Absent: distention - Extremities Exam Extremities exam: Absent: tenderness, pedal edema - Neurological Exam Neurological exam: Present: alert, oriented X3. Absent: motor sensory deficit - Psychiatric Psychiatric exam: Present: normal affect, normal mood - Skin Skin exam: Present: warm, dry. Absent: rash Course Course Narrative: Patient arrives with 2 complaints. First one is difficulty urinating. He feels like he has to go but can only dribble. On arrival we find that he also has a fever. This is concerning for urinary tract infection and possible urinary retention. He also complained of feeling short of breath but he is always short of breath and he supposed to be on oxygen all the time. We hooked him up to the pulse ox his O2 sat was low but as soon as we put him on his normal 3 L of home oxygen, his O2 sat is 95%. His lungs sound fine. He says he had a cough but that resolved a number of days ago. I will check a chest x-ray but I do not think the issues in the lungs based on his story and physical exam. We will do an infectious workup on the patient. We will check for urinary retention and evaluate the urine. Disposition will be based on diagnostic results and reevaluation. - Reevaluation(s) Reevaluation #1: Chest x-ray did not show pneumonia. There was some question of pulmonary mass or congestion but I do not hear any rales on his auscultation and his O2 sats are fine as long as he is using his home oxygen level. He does not have any other indications of CHF. The urine had bacteria. White count was 20,000. He has a 102 temperature. I think this is all urinary tract infection. I given him Rocephin already. I spoke with the hospitalist and we will admit the patient for IV antibiotics and further management. Time: 20:39 - Consultations Consultation #1: Dr. Oshea, hospitalist - I discussed the case with the hospitalist. He accepted the patient for admission Time: 20:30 Vital Signs Temperature 102.5 F H 11/17/18 17:47 Pulse Rate 67 11/17/18 17:47 Respiratory Rate 20 11/17/18 17:47 Blood Pressure 187/76 11/17/18 17:47 O2 Sat by Pulse Oximetry 95 11/17/18 17:47 Temperature 101.2 F H 11/17/18 19:44 Pulse Rate 66 11/17/18 19:44 Respiratory Rate 16 11/17/18 19:44 Blood Pressure 157/56 11/17/18 19:44 O2 Sat by Pulse Oximetry 94 11/17/18 19:44 Oxygen Delivery Oxygen Delivery Nasal Cannula Urogenital-Male - Medical Records Medical records reviewed: Yes I reviewed the patient's medical records. - Lab Data Lab results reviewed: Yes I reviewed the patient's lab results. Result diagrams: 11/17/18 18:36 11/17/18 18:36 Lab Results 11/17/18 11/17/18 11/17/18 Range/Units 18:36 18:36 18:36 WBC 20.2 H (4.3-11.1) K/mcL RBC 4.45 (4.19-5.50) M/mcL Hgb 11.0 L (12.9-16.9) g/dL Hct 34.3 L (37.5-50.1) % MCV 77.1 L (83.0-100.0) fL MCH 24.7 L (28.0-33.3) pg MCHC 32.1 (31.6-35.5) g/dL RDW 16.5 H (11.5-14.5) % Plt Count 257 (140-400) K/mcL MPV 9.1 L (9.4-12.4) fL Immature Gran % 0.5 (0-4) % Seg Neutrophils % 87.0 % Lymphocytes % 7.1 % Monocytes % 4.8 % Eosinophils % 0.3 % Basophils % 0.3 % Neutrophils # 17.6 H (1.6-8.9) K/mcL Lymphocytes # 1.4 (0.6-4.6) K/mcL Monocytes # 1.0 (0.0-1.3) K/mcL Eosinophils # 0.1 (0.0-0.6) K/mcL Basophils # 0.1 (0.0-0.2) K/mcL Sodium 132 L (136-145) mEq/L Potassium 4.4 (3.5-5.1) mEq/L Chloride 96 L (98-107) mEq/L Carbon Dioxide 27 (23-29) mEq/L BUN 21 (8-23) mg/dL Creatinine 1.54 H (0.70-1.30) mg/dL Est GFR ( Amer) 55 L (> 60) Est GFR (Non-Af Amer) 45 L (> 60) BUN/Creatinine Ratio 14 (6-26) Glucose 225 H (70-105) mg/dL Calculated Osmolality 284 (280-300) Lactic Acid 0.8 (0.5-2.2) mmol/L Calcium 9.1 (8.6-10.3) mg/dL Troponin I 0.03 (< 0.04) ng/mL B-Natriuretic Peptide (Less than 100) pg/mL Urine Color (Yellow) Urine Clarity (Clear) Urine pH (5.0-8.0) pH Units Ur Specific [place] (1.010-1.025) Urine Protein (Neg-Trace) mg/dL Urine Glucose (UA) (Normal) mg/dL Urine Ketones (Negative) mg/dL Urine Blood (Negative) Urine Nitrite (Negative) Urine Bilirubin (Negative) Urine Urobilinogen (Normal) mg/dL Ur Leukocyte Esterase (Negative) Urine Microscopic WBC (0-3) per hpf Urine Bacteria (None-Few) per hpf Ur Culture Indicated? (NO) 11/17/18 11/17/18 Range/Units 18:36 18:51 WBC (4.3-11.1) K/mcL RBC (4.19-5.50) M/mcL Hgb (12.9-16.9) g/dL Hct (37.5-50.1) % MCV (83.0-100.0) fL MCH (28.0-33.3) pg MCHC (31.6-35.5) g/dL RDW (11.5-14.5) % Plt Count (140-400) K/mcL MPV (9.4-12.4) fL Immature Gran % (0-4) % Seg Neutrophils % % Lymphocytes % % Monocytes % % Eosinophils % % Basophils % % Neutrophils # (1.6-8.9) K/mcL Lymphocytes # (0.6-4.6) K/mcL Monocytes # (0.0-1.3) K/mcL Eosinophils # (0.0-0.6) K/mcL Basophils # (0.0-0.2) K/mcL Sodium (136-145) mEq/L Potassium (3.5-5.1) mEq/L Chloride (98-107) mEq/L Carbon Dioxide (23-29) mEq/L BUN (8-23) mg/dL Creatinine (0.70-1.30) mg/dL Est GFR ( Amer) (> 60) Est GFR (Non-Af Amer) (> 60) BUN/Creatinine Ratio (6-26) Glucose (70-105) mg/dL Calculated Osmolality (280-300) Lactic Acid (0.5-2.2) mmol/L Calcium (8.6-10.3) mg/dL Troponin I (< 0.04) ng/mL B-Natriuretic Peptide 439 H (Less than 100) pg/mL Urine Color Light Yellow (Yellow) Urine Clarity Slightly Cloudy A (Clear) Urine pH 7.5 (5.0-8.0) pH Units Ur Specific [place] 1.020 (1.010-1.025) Urine Protein 100 H (Neg-Trace) mg/dL Urine Glucose (UA) Normal (Normal) mg/dL Urine Ketones Negative (Negative) mg/dL Urine Blood Trace-lysed H (Negative) Urine Nitrite Negative (Negative) Urine Bilirubin Negative (Negative) Urine Urobilinogen Normal (Normal) mg/dL Ur Leukocyte Esterase Large H (Negative) Urine Microscopic WBC 30-50 H (0-3) per hpf Urine Bacteria Few (None-Few) per hpf Ur Culture Indicated? YES A (NO) - Radiology Data Radiology results reviewed: Yes I reviewed the patient's radiology results. - EKG Data EKG attestation: Yes I reviewed and interpreted this EKG. EKG results narrative: Twelve-lead EKG performed at 5:52 PM. Ordered, reviewed and interpreted by ED physician shows sinus rhythm at a rate of 68. Normal axis. Good hour progression across the precordium. No acute ischemic changes.
[2018-11-17 18:45] LABS: Basophils # 0.1 K/mcL (0.0-0.2); Basophils % 0.3 %; Eosinophils # 0.1 K/mcL (0.0-0.6); Eosinophils % 0.3 %; Hematocrit 34.3 % (37.5-50.1); Immature Granulocytes % 0.5 % (0-4); Lymphocytes # 1.4 K/mcL (0.6-4.6); Lymphocytes % 7.1 %; Mean Corpuscular HGB Conc 32.1 g/dL (31.6-35.5); Mean Corpuscular Hemoglobin 24.7 pg (28.0-33.3); Mean Corpuscular Volume 77.1 fL (83.0-100.0); Mean Platelet Volume 9.1 fL (9.4-12.4); Monocytes % 4.8 %; Neutrophils # 17.6 K/mcL (1.6-8.9); Platelet Count 257 K/mcL (140-400); Red Blood Count 4.45 M/mcL (4.19-5.50); Red Cell Distribution Width 16.5 % (11.5-14.5); White Blood Count 20.2 K/mcL (4.3-11.1)
[2018-11-17 18:56] LABS: Bilirubin,Urine Negative (Negative); Blood,Urine Trace-lysed (Negative); Clarity,Urine Slightly Cloudy (Clear); Glucose,Urine (UA) Normal (Normal); Ketones,Urine Negative (Negative); Leukocyte Esterase,Urine Large (Negative); Nitrite,Urine Negative (Negative); PH,Urine 7.5 pH Units (5.0-8.0); Protein,Urine 100 mg/dL (Neg-Trace); Urobilinogen,Urine Normal (Normal)
[2018-11-17 19:01] LABS: Calcium 9.1 mg/dL (8.6-10.3); Potassium 4.4 mEq/L (3.5-5.1)
[2018-11-17 19:05] LABS: Troponin I 0.03 ng/mL (< 0.04)
[2018-11-17 19:10] LABS: Color,Urine Light Yellow (Yellow)
[2018-11-17 19:11] LABS: Bacteria,Urine Few per hpf (None-Few); WBC,Urine 30-50 per hpf (0-3)
[2018-11-17] MEDS ORDERED: Naloxone 0.4 MG/ML INJ IVP PRN (21:40)
[2018-11-17] MEDS ORDERED: Insulin DETEMIR 100 UNIT/ML X5UNITS SQ SCH (21:40)
[2018-11-17] MEDS ORDERED: Insulin DETEMIR 100 UNIT/ML per UNIT SQ ONE (22:04)
[2018-11-17] MEDS: 0.9 % Sodium Chloride 1,000 ML IVC SCH (23:00)
[2018-11-17] MEDS: Nicotine 14 MG PATCH.TD24 TD SCH (23:00)
[2018-11-18] MEDS ORDERED: *HR* Metoprolol 5 MG/5 ML VIAL IVP ONE (03:55)
[2018-11-18] MEDS ORDERED: Nicotine 14 MG PATCH.TD24 TD SCH (09:00)
[2018-11-18] MEDS: cefTRIAXone 1,000 MG in Water for inj. (sterile) 10 ML IVPB SCH (11:10)
--- NOTE | 2018-11-18 12:43 | Internal Med History&Physical ---
Date of Encounter: 11/18/18 Time of Encounter: 12:20 Assessment and Plan (1) Urinary tract infection Current visit: Yes Status: Acute He was started on Rocephin in emergency room. This will be continued with lactobacillus. Urine culture report is pending. Blood cultures show no growth at this time. Qualifiers: Urinary tract infection type: site unspecified Hematuria presence: without hematuria Qualified Code(s): N39.0 - Urinary tract infection, site not specified (2) Hypertension Current visit: No Status: Chronic Continue clonidine, hydralazine,, Imdur, nifedipine, Aldactone, and Demadex. Qualifiers: Hypertension type: essential hypertension Qualified Code(s): I10 - Essential (primary) hypertension (3) Anemia Current visit: No Status: Chronic Anemia testing will be ordered. Qualifiers: Anemia type: iron deficiency Iron deficiency anemia type: unspecified iron deficiency Qualified Code(s): D50.9 - Iron deficiency anemia, unspecified (4) Acute on chronic diastolic (congestive) heart failure Current visit: No Status: Acute Continue Coreg, hydralazine, Demadex and Aldactone. (5) COPD (chronic obstructive pulmonary disease) Current visit: No Status: Chronic Continue Symbicort. Qualifiers: COPD type: unspecified COPD Qualified Code(s): J44.9 - Chronic obstructive pulmonary disease, unspecified (6) Gout Current visit: No Status: Chronic Check uric acid level. Qualifiers: Gout site: unspecified site Gout etiology: unspecified cause Chronicity: chronic Presence of tophus: without tophus Qualified Code(s): M1A.9XX0 - Chronic gout, unspecified, without tophus (tophi) (7) DM type 1 (diabetes mellitus, type 1) Current visit: No Status: Chronic Continue basal insulin and Accu-Cheks with SSI. Qualifiers: Diabetes mellitus complication status: without complication Qualified Code(s): E10.9 - Type 1 diabetes mellitus without complications Internal Medicine - H&P: HPI Chief complaint: Dysuria, fever, dyspnea Admitted From: Emergency Dept Plans for Post Hospital Care: Home History of present illness: Mr. Jimenez is a 68 year old male who came to emergency room stating he had 3-4 day history of urinary frequency with dysuria, fever, dyspnea, and minimally productive cough. He denies vomiting or diarrhea. He was evaluated in emergency room was found to have evidence of urinary infection with retention and acute renal failure. [facility]. history is negative for kidney stones or hematuria. He has not been diagnosed with BPH previously. Past Med Surg Social Fam HX - Past Medical History Medical history: cancer, cirrhosis, CHF, COPD, coronary artery disease, diabetes, hyperlipidemia, hypertension, myocardial infarction, other Additional medical history: Diabetes type 1. liver cancer Psychiatric history: depression - Past Surgical History Surgical History: angioplasty/stent, other Additional surgical history: LAKA for ulcers, cardiac cath with stents, PID with stents, - Social History Smoking Status: Current every day smoker Smokeless Tobacco Status: No Alcohol use: none Drug use: none - Family History Brother Hx Family Cancer: Yes (lung) Internal Medicine - H&P: Meds Atorvastatin Calcium [Lipitor] 20 mg PO HS 12/06/15 [History] Clopidogrel [Plavix] 75 mg PO DAILY 12/06/15 [History] Multivitamin [Multi-Day Vitamins] 1 each PO DAILY 12/06/15 [History] Sucralfate [Carafate] 1 gm PO QID 12/06/15 [History] Insulin Degludec [Tresiba Flextouch U-100] 60 unit SQ HS 03/16/16 [History] Metoclopramide HCl 5 mg PO QID 03/16/16 [History] Cyanocobalamin (Vitamin B-12) [Vitamin B-12] 1,000 mcg PO DAILY 07/21/16 [History] Docusate Sodium [Dok] 100 mg PO TID 07/21/16 [History] Insulin ASPART [NovoLOG] 0 unit SQ AD 07/21/16 [History] Magnesium Oxide [Mag-Ox] 400 mg PO DAILY 07/21/16 [History] Nitroglycerin [Nitrostat] 0.4 mg SL Q5M PRN 07/21/16 [History] Torsemide [Demadex] 60 mg PO BID 07/21/16 [History] raNITIdine HCl [Ranitidine HCl] 150 mg PO DAILY 07/21/16 [History] LORazepam [Ativan] 0.5 mg PO BID PRN #20 tablet 07/22/16 [Rx] Potassium Chloride [K-Tab ER] 40 meq PO BID 08/11/17 [History] Carvedilol [Coreg] 50 mg PO BIDWM 30 Days #60 tablet 08/13/17 [Rx] Hydralazine HCl 150 mg PO TID 02/24/18 [History] Apixaban [Eliquis] 5 mg PO BID 06/22/18 [History] Budesonide/Formoterol 160/4.5 [Symbicort 160/4.5] 2 puff IH BIDR 06/22/18 [History] Isosorbide MONOnitrate (24 HR) [Imdur] 120 mg PO DAILY 06/22/18 [History] NIFEdipine [Nifedipine ER] 90 mg PO BID 06/22/18 [History] Pantoprazole Sodium [Protonix] 40 mg PO DAILY 06/22/18 [History] Sertraline [Zoloft] 100 mg PO DAILY 06/22/18 [History] Spironolactone [Aldactone] 50 mg PO DAILY 06/22/18 [History] Allopurinol [Zyloprim 100 MG] 100 mg PO DAILY 09/06/18 [History] Ascorbic Acid [C-500] 500 mg PO DAILY #30 tablet 09/07/18 [Rx] Ferrous Sulfate [Iron] 325 mg PO DAILY #0 09/07/18 [Rx] cloNIDine HCl [Clonidine HCl] 0.3 mg PO BID #60 tab 09/07/18 [Rx] Allergy/AdvReac Type Severity Reaction Status Date / Time lisinopril Allergy Severe Swelling Verified 11/17/18 20:44 of Lip/Tongue/Throat All Systems PM: A 10-system review of systems was performed and is negative for pertinent findings except as documented above in the HPI. Review of systems: Review of systems from his August 2018 [facility] hospitalization were reviewed and revised as below. Gen.: His weight is minimally decreased from 113.625 kg on 09/06/2018 to present weight of 111.13 kg. Cardiovascular: He has history of long-standing resistant hypertension requiring multiple medications for treatment. He has ASHD status post MIs at age 48 and 63. He reports numerous heart caths with most recent approximately 2012. He states he has had "20 stents". He reports left carotid endarterectomy approximately 2012. He reports a diagnosis of heart failure. Echocardiogram 08/11/2017 showed LVEF of 55-60%. The interventricular septum and posterior wall thickness measurements were 1.31 cm each. There was LAE at 5.20 cm. The E/A ratio was 1.3. No significant valvular abnormalities were seen. He reports a pulmonary embolism January 2018 and is on Eliquis. Respiratory: He has smoked since age 13 up to 2 packs per day. He has a diagnosis of COPD and uses oxygen at bedtime and when necessary during the daytime. He has been diagnosed with KHANG and uses BiPAP at bedtime. He has had pneumonia multiple times in the past. GI: He has had cholecystectomy. He has NAFLD and occasional GERD symptoms. He denies other disorders of his liver or exocrine pancreas. : He denies hematuria dysuria or kidney stones Neurologic: He denies large distribution strokes or seizures. Endocrine: He was diagnosed with DM 1 at age 28. He has hypertriglyceridemia. He denies known thyroid disease. Hematology/oncology: He reports being diagnosed with Hodgkin's lymphoma approximately 2015. He has received chemotherapy and states he is in remission. He follows with an oncologist every 6 months in [place]. He denies other known internal malignancies. He has anemia and was prescribed ferrous sulfate with ascorbic acid at time of discharge August 2018. 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 He states he has a prosthetic leg but does not use it. He has history of gout. He denies other bone joint or muscle disorders. - Constitutional Vitals: Temp Pulse Resp BP Pulse Ox 98.4 F 58 18 211/81 95 11/18/18 11:40 11/18/18 11:40 11/18/18 11:40 11/18/18 11:40 11/18/18 11:40 Exam: Gen.: He is a well-developed well-nourished male resting comfortably in bed who appears in no acute distress at present time HEENT: Head is atraumatic and normocephalic. Eyes: EOMI. There is no scleral icterus. Mouth: Mucosa is moist. Neck: Supple and nontender. There is no thyromegaly or adenopathy noted. Heart: Regular without murmurs gallops or ectopics Lungs: No wheezes or crackles are heard. Abdomen: Soft and nontender. No masses or guarding are noted. Extremities: He has a well-healed left AKA. The right leg shows trace to 1+ edema of the dorsum of the foot and lower leg. Dorsalis pedis and posterior tibial pulses are not palpable. Neurologic: Mental status: He is talkative and a good historian. Cranial nerves: Smile is symmetric. Forehead wrinkles bilaterally. Tongue protrudes midline. EOMI. Motor: There is no pronator drift. Cerebellar: Finger to nose is intact bilaterally. Skin: Warm and dry Internal Med - H&P Results - Labs CBC & Chem 7: 11/17/18 18:36 11/17/18 18:36 Labs: Short CBC 11/17/18 Range/Units 18:36 WBC 20.2 H (4.3-11.1) K/mcL Hgb 11.0 L (12.9-16.9) g/dL Hct 34.3 L (37.5-50.1) % Plt Count 257 (140-400) K/mcL Neutrophils # 17.6 H (1.6-8.9) K/mcL BMP 11/17/18 18:36 Sodium 132 L Potassium 4.4 Chloride 96 L Carbon Dioxide 27 BUN 21 Creatinine 1.54 H Glucose 225 H Calcium 9.1 Cardiac Enzymes 11/17/18 Range/Units 18:36 Troponin I 0.03 (< 0.04) ng/mL Urine 11/17/18 Range/Units 18:51 Urine Color Light Yellow (Yellow) Urine Clarity Slightly Cloudy A (Clear) Urine pH 7.5 (5.0-8.0) pH Units Ur Specific [place] 1.020 (1.010-1.025) Urine Protein 100 H (Neg-Trace) mg/dL Urine Glucose (UA) Normal (Normal) mg/dL - Impressions ITS Impressions Chest X-Ray 11/17/18 18:37 IMPRESSION: Perihilar pulmonary vasculature edema. No convincing evidence of focal airspace consolidation pleural effusion. D/ / Angel Rose / Angel Rose Interpreting Provider: Angel Rose
[2018-11-18] MEDS: 0.9 % Sodium Chloride 1,000 ML IVC SCH (13:48)
--- NOTE | 2018-11-18 15:50 | Electrocardiograph Report ---
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
[2018-11-18] MEDS: hydrALAZINE 25 MG TABLET PO SCH (15:51)
[2018-11-18] MEDS: Magnesium Oxide 400 MG TABLET PO SCH (15:52)
[2018-11-18] MEDS: cloNIDine HCl 0.1 MG TABLET PO SCH ×2 (15:53→20:20)
[2018-11-18] MEDS: Spironolactone 25 MG TABLET PO SCH (15:53)
[2018-11-18] MEDS: Isosorbide MONOnitrate (24 HR) 60 MG TAB.ER.24H PO SCH (15:54)
[2018-11-18] MEDS: Sucralfate 1 GM TABLET PO SCH ×2 (15:54→20:19)
[2018-11-18] MEDS: Torsemide 20 MG TABLET PO SCH (15:54)
[2018-11-18] MEDS: NIFEdipine XL (24 HR) 30 MG TAB.ER.24 PO SCH ×2 (15:55→20:19)
[2018-11-18] MEDS: Cyanocobalamin (B-12) 1,000 MCG TABLET PO SCH (15:55)
[2018-11-18] MEDS: Budesonide/Formoterol 160/4.5 1 PUFF INH IH SCH ×2 (17:02→22:29)
[2018-11-18] MEDS: Metoclopramide 10 MG/10 ML UD.LIQ PO SCH (17:13)
[2018-11-18] MEDS: *HR* LORazepam 0.5 MG TABLET PO PRN (20:19)
[2018-11-18] MEDS: Lactobacillus 1 EACH CAP.SPRINK PO SCH (20:20)
[2018-11-18] MEDS: Apixaban 5 MG TABLET PO SCH (20:20)
[2018-11-18] MEDS ORDERED: Insulin DETEMIR 100 UNIT/ML X5UNITS SQ SCH (21:00)
[2018-11-18] MEDS: Insulin DETEMIR 100 UNIT/ML per UNIT SQ SCH (21:00)
[2018-11-19] MEDS: Nicotine 14 MG PATCH.TD24 TD SCH (01:00)
[2018-11-19] MEDS: Metoclopramide 10 MG/10 ML UD.LIQ PO SCH ×4 (04:37→18:21)
[2018-11-19] MEDS: hydrALAZINE 25 MG TABLET PO SCH ×3 (04:37→15:14)
[2018-11-19] MEDS ORDERED: hydrALAZINE 25 MG TABLET PO SCH (05:00)
[2018-11-19 06:54] LABS: Basophils # 0.1 K/mcL (0.0-0.2); Basophils % 0.4 %; Eosinophils # 0.2 K/mcL (0.0-0.6); Eosinophils % 1.6 %; Hemoglobin 10.2 g/dL (12.9-16.9); Immature Granulocytes % 0.4 % (0-4); Lymphocytes % 7.4 %; Mean Corpuscular HGB Conc 31.9 g/dL (31.6-35.5); Mean Corpuscular Hemoglobin 24.9 pg (28.0-33.3); Mean Corpuscular Volume 78.2 fL (83.0-100.0); Mean Platelet Volume 9.5 fL (9.4-12.4); Monocytes # 0.7 K/mcL (0.0-1.3); Platelet Count 250 K/mcL (140-400); Red Blood Count 4.09 M/mcL (4.19-5.50); Red Cell Distribution Width 16.2 % (11.5-14.5); Segmented Neutrophils % 85.2 %; White Blood Count 14.1 K/mcL (4.3-11.1)
[2018-11-19 07:19] LABS: BUN/Creatinine Ratio 13 (6-26); Blood Urea Nitrogen 17 mg/dL (8-23); Carbon Dioxide 31 mEq/L (23-29); Chloride 101 mEq/L (98-107); Glucose 109 mg/dL (70-105); Osmolality,Calculated 290 (280-300); Potassium 4.2 mEq/L (3.5-5.1); Sodium 139 mEq/L (136-145); eGFR For African Americans > 60 (> 60); eGFR For Non-African Americans 56 (> 60)
[2018-11-19] MEDS: Torsemide 20 MG TABLET PO SCH ×2 (07:49→16:34)
[2018-11-19] MEDS: Sucralfate 1 GM TABLET PO SCH ×3 (07:49→16:34)
[2018-11-19] MEDS: Budesonide/Formoterol 160/4.5 1 PUFF INH IH SCH ×2 (09:15→20:58)
[2018-11-19 09:29] LABS: Folate 15.4 ng/mL (3.0-16.0)
[2018-11-19] MEDS: cloNIDine HCl 0.1 MG TABLET PO SCH ×2 (10:18→20:38)
[2018-11-19] MEDS: Apixaban 5 MG TABLET PO SCH ×2 (10:19→20:39)
[2018-11-19] MEDS: Magnesium Oxide 400 MG TABLET PO SCH (10:19)
[2018-11-19] MEDS: Lactobacillus 1 EACH CAP.SPRINK PO SCH ×2 (10:19→20:38)
[2018-11-19] MEDS: Spironolactone 25 MG TABLET PO SCH (10:20)
[2018-11-19] MEDS: NIFEdipine XL (24 HR) 30 MG TAB.ER.24 PO SCH ×2 (10:20→20:38)
[2018-11-19] MEDS: Cyanocobalamin (B-12) 1,000 MCG TABLET PO SCH (10:21)
[2018-11-19] MEDS: Isosorbide MONOnitrate (24 HR) 60 MG TAB.ER.24H PO SCH (10:21)
[2018-11-19] MEDS: cefTRIAXone 1,000 MG in Water for inj. (sterile) 10 ML IVPB SCH (10:22)
--- NOTE | 2018-11-19 10:30 | Internal Med Progress Note ---
Date of Encounter: 11/19/18 Time of Encounter: 10:20 - Assessment and plan (1) Urinary tract infection Current Visit: Yes Status: Acute Assessment and plan: November 19. Preliminary urine culture shows gram-negative rods. Culture showed no growth to date. Continue empiric Rocephin with lactobacillus. Qualifiers: Urinary tract infection type: site unspecified Hematuria presence: without hematuria Qualified Code(s): N39.0 - Urinary tract infection, site not specified (2) Hypertension Current Visit: No Status: Chronic Assessment and plan: November 19. Continue clonidine, hydralazine, Imdur, nifedipine, Aldactone, and Demadex. Qualifiers: Hypertension type: essential hypertension Qualified Code(s): I10 - Essential (primary) hypertension (3) Anemia Current Visit: No Status: Chronic Assessment and plan: November 19. Anemia testing showed iron 20, transferrin saturation 14%, trans dorothy 102, ferritin 587, B12 372, and folate 15.4. Continue to monitor CBC. Qualifiers: Anemia type: iron deficiency Iron deficiency anemia type: unspecified iron deficiency Qualified Code(s): D50.9 - Iron deficiency anemia, unspecified (4) Acute on chronic diastolic (congestive) heart failure Current Visit: No Status: Acute Assessment and plan: November 15. Continue Coreg, hydralazine, Demadex, and Aldactone. (5) COPD (chronic obstructive pulmonary disease) Current Visit: No Status: Chronic Assessment and plan: November 15. Continue Symbicort Qualifiers: COPD type: unspecified COPD Qualified Code(s): J44.9 - Chronic obstructive pulmonary disease, unspecified (6) Gout Current Visit: No Status: Chronic Assessment and plan: November 15. Uric acid level acceptable at 7.0. Continue allopurinol. Qualifiers: Gout site: unspecified site Gout etiology: unspecified cause Chronicity: chronic Presence of tophus: without tophus Qualified Code(s): M1A.9XX0 - Chronic gout, unspecified, without tophus (tophi) (7) DM type 1 (diabetes mellitus, type 1) Current Visit: No Status: Chronic Assessment and plan: November 19. Continue present rx. Qualifiers: Diabetes mellitus complication status: without complication Qualified Code(s): E10.9 - Type 1 diabetes mellitus without complications - Subjective Interval history: November 19. He has no new complaints and feels better. - Constitutional Vitals: Temp Pulse Resp BP Pulse Ox 98.4 F 57 18 179/72 92 11/19/18 06:28 11/19/18 10:16 11/19/18 09:16 11/19/18 10:16 11/19/18 09:16 Exam: He is resting comfortably in bed and appears in no acute distress. His affect is bright and cheerful. I reviewed his medications and lab results. Internal Medicine: Result - Labs CBC & Chem 7: 11/19/18 06:13 11/19/18 06:13 Labs: Short CBC 11/19/18 Range/Units 06:13 WBC 14.1 H (4.3-11.1) K/mcL Hgb 10.2 L (12.9-16.9) g/dL Hct 32.0 L (37.5-50.1) % Plt Count 250 (140-400) K/mcL Neutrophils # 12.0 H (1.6-8.9) K/mcL BMP 11/19/18 06:13 Sodium 139 Potassium 4.2 Chloride 101 Carbon Dioxide 31 H BUN 17 Creatinine 1.27 Glucose 109 H Calcium 9.0 Consult Discharge Plan - Plan Referrals: Sky Carreno MD [Primary Care Provider] - 1 week
[2018-11-19] MEDS: Insulin DETEMIR 100 UNIT/ML per UNIT SQ SCH (20:39)
[2018-11-19] MEDS: *HR* LORazepam 0.5 MG TABLET PO PRN (20:43)
[2018-11-20] MEDS: hydrALAZINE 25 MG TABLET PO SCH ×2 (04:45→11:06)
[2018-11-20] MEDS: Nicotine 14 MG PATCH.TD24 TD SCH (04:49)
[2018-11-20] MEDS: Metoclopramide 10 MG/10 ML UD.LIQ PO SCH ×3 (04:49→11:10)
[2018-11-20] MEDS: Sucralfate 1 GM TABLET PO SCH ×3 (04:49→11:10)
[2018-11-20 06:34] LABS: Basophils # 0.1 K/mcL (0.0-0.2); Basophils % 0.5 %; Eosinophils # 0.3 K/mcL (0.0-0.6); Eosinophils % 2.9 %; Hematocrit 31.5 % (37.5-50.1); Hemoglobin 9.9 g/dL (12.9-16.9); Immature Granulocytes % 0.5 % (0-4); Lymphocytes # 1.4 K/mcL (0.6-4.6); Lymphocytes % 13.5 %; Mean Corpuscular HGB Conc 31.4 g/dL (31.6-35.5); Mean Corpuscular Hemoglobin 24.3 pg (28.0-33.3); Mean Corpuscular Volume 77.4 fL (83.0-100.0); Mean Platelet Volume 9.2 fL (9.4-12.4); Monocytes # 0.7 K/mcL (0.0-1.3); Monocytes % 6.8 %; Neutrophils # 7.8 K/mcL (1.6-8.9); Platelet Count 259 K/mcL (140-400); Red Blood Count 4.07 M/mcL (4.19-5.50); Red Cell Distribution Width 15.9 % (11.5-14.5); Segmented Neutrophils % 75.8 %; White Blood Count 10.3 K/mcL (4.3-11.1)
[2018-11-20 07:01] LABS: Alanine Aminotransferase 9 Units/L (7-52); Albumin 3.6 g/dL (3.5-5.7); Albumin/Globulin Ratio 1.1 (1.1-2.2); Alkaline Phosphatase 73 Units/L (34-104); Aspartate Amino Transferase 11 Units/L (13-39); BUN/Creatinine Ratio 16 (6-26); Bilirubin,Total 0.4 mg/dL (0.3-1.0); Blood Urea Nitrogen 21 mg/dL (8-23); Calcium 9.2 mg/dL (8.6-10.3); Carbon Dioxide 30 mEq/L (23-29); Chloride 100 mEq/L (98-107); Globulin 3.4 g/dL (2.4-3.5); Glucose 101 mg/dL (70-105); Osmolality,Calculated 289 (280-300); Potassium 3.9 mEq/L (3.5-5.1); Sodium 138 mEq/L (136-145); eGFR For African Americans > 60 (> 60); eGFR For Non-African Americans 56 (> 60)
[2018-11-20 08:47] VITALS: BP 166/64
[2018-11-20] MEDS: Torsemide 20 MG TABLET PO SCH (08:48)
[2018-11-20] MEDS: Isosorbide MONOnitrate (24 HR) 60 MG TAB.ER.24H PO SCH (08:48)
[2018-11-20] MEDS: NIFEdipine XL (24 HR) 30 MG TAB.ER.24 PO SCH (08:48)
[2018-11-20] MEDS: Lactobacillus 1 EACH CAP.SPRINK PO SCH (08:49)
[2018-11-20] MEDS: Apixaban 5 MG TABLET PO SCH (08:49)
[2018-11-20] MEDS: cloNIDine HCl 0.1 MG TABLET PO SCH (08:49)
[2018-11-20] MEDS: Spironolactone 25 MG TABLET PO SCH (08:49)
[2018-11-20] MEDS: Magnesium Oxide 400 MG TABLET PO SCH (08:49)
[2018-11-20] MEDS: cefTRIAXone 1,000 MG in Water for inj. (sterile) 10 ML IVPB SCH (08:50)
[2018-11-20] MEDS: Cyanocobalamin (B-12) 1,000 MCG TABLET PO SCH (08:50)
--- NOTE | 2018-11-20 09:21 | Discharge Summary ---
Orders not resulted at time of discharge: Pending orders 11/17/18 18:36 Culture,Blood [BC] Stat Date of Encounter: 11/20/18 Time of Encounter: 09:12 - Discharge Diagnosis (1) Urinary tract infection Priority: Primary Status: Acute Qualifiers: Urinary tract infection type: site unspecified Hematuria presence: without hematuria Qualified Code(s): N39.0 - Urinary tract infection, site not specified (2) Hypertension Priority: Secondary Status: Chronic Qualifiers: Hypertension type: essential hypertension Qualified Code(s): I10 - Essential (primary) hypertension (3) Anemia Priority: Secondary Status: Chronic Qualifiers: Anemia type: iron deficiency Iron deficiency anemia type: unspecified iron deficiency Qualified Code(s): D50.9 - Iron deficiency anemia, unspecified (4) Acute on chronic diastolic (congestive) heart failure Priority: Secondary Status: Acute (5) COPD (chronic obstructive pulmonary disease) Priority: Secondary Status: Chronic Qualifiers: COPD type: unspecified COPD Qualified Code(s): J44.9 - Chronic obstructive pulmonary disease, unspecified (6) Gout Priority: Secondary Status: Chronic Qualifiers: Gout site: unspecified site Gout etiology: unspecified cause Chronicity: chronic Presence of tophus: without tophus Qualified Code(s): M1A.9XX0 - Chronic gout, unspecified, without tophus (tophi) (7) DM type 1 (diabetes mellitus, type 1) Priority: Secondary Status: Chronic Qualifiers: Diabetes mellitus complication status: without complication Qualified Code(s): E10.9 - Type 1 diabetes mellitus without complications Hospital course: Mr. Jimenez is a 68 year old male who came to emergency room stating he had 3-4 day history of urinary frequency with dysuria, fever, dyspnea, and minimally productive cough. He denies vomiting or diarrhea. He was evaluated in emergency room and was found to have evidence of urinary infection with retention and acute renal failure. He was admitted to [facility] floor for ongoing care needs. Initial orders were written by the emergency room physician. I saw him on November 18 and performed a history and physical. He was started empirically on IV Rocephin with lactobacillus. Urine culture returned showing Proteus mirabilis with resistance to Rocephin but sensitive to Augmentin. WBC normalized to 10.3 by day of discharge with resolution of left shift. He will be prescribed Augmentin with lactobacillus for 5 days at discharge. IV fluids were given and azotemia decreased with BUN and creatinine 21 and 1.28 respectively and estimated GFR 56 by day of discharge. Anemia testing showed iron 20, transferrin saturation 14%, transferrin 102, ferritin 587, B12 372, and folate 15.2. He will continue ferrous sulfate with ascorbic acid at home. He will follow with his PCP Dr. Sky Carreno within 1 week. - Time Spent with Patient Total time spent providing and/or coordinating discharge services: - Discharge Medications Prescriptions: New Amoxicillin/Clavulanate [Augmentin] 875 mg PO BIDWM #14 tablet Lactobacillus [Culturelle] 1 each PO BID #14 cap.sprink Continued Multivitamin [Multi-Day Vitamins] 1 each PO DAILY Sucralfate [Carafate] 1 gm PO QID Clopidogrel [Plavix] 75 mg PO DAILY Atorvastatin Calcium [Lipitor] 20 mg PO HS Metoclopramide HCl 5 mg PO QID Insulin Degludec [Tresiba Flextouch U-100] 60 unit SQ HS Torsemide [Demadex] 60 mg PO BID Cyanocobalamin (Vitamin B-12) [Vitamin B-12] 1,000 mcg PO DAILY raNITIdine HCl [Ranitidine HCl] 150 mg PO DAILY Magnesium Oxide [Mag-Ox] 400 mg PO DAILY Docusate Sodium [Dok] 100 mg PO TID Nitroglycerin [Nitrostat] 0.4 mg SL Q5M PRN PRN Reason: Chest Pain Insulin ASPART [NovoLOG] 0 unit SQ AD LORazepam [Ativan] 0.5 mg PO BID PRN #20 tablet PRN Reason: Anxiety Potassium Chloride [K-Tab ER] 40 meq PO BID Carvedilol [Coreg] 50 mg PO BIDWM 30 Days #60 tablet Hydralazine HCl 150 mg PO TID NIFEdipine [Nifedipine ER] 90 mg PO BID Budesonide/Formoterol 160/4.5 [Symbicort 160/4.5] 2 puff IH BIDR Sertraline [Zoloft] 100 mg PO DAILY Isosorbide MONOnitrate (24 HR) [Imdur] 120 mg PO DAILY Spironolactone [Aldactone] 50 mg PO DAILY Apixaban [Eliquis] 5 mg PO BID Pantoprazole Sodium [Protonix] 40 mg PO DAILY Allopurinol [Zyloprim 100 MG] 100 mg PO DAILY Ascorbic Acid [C-500] 500 mg PO DAILY #30 tablet cloNIDine HCl [Clonidine HCl] 0.3 mg PO BID #60 tab Ferrous Sulfate [Iron] 325 mg PO DAILY #0 Home Medications: Atorvastatin Calcium [Lipitor] 20 mg PO HS 12/06/15 [History] Clopidogrel [Plavix] 75 mg PO DAILY 12/06/15 [History] Multivitamin [Multi-Day Vitamins] 1 each PO DAILY 12/06/15 [History] Sucralfate [Carafate] 1 gm PO QID 12/06/15 [History] Insulin Degludec [Tresiba Flextouch U-100] 60 unit SQ HS 03/16/16 [History] Metoclopramide HCl 5 mg PO QID 03/16/16 [History] Cyanocobalamin (Vitamin B-12) [Vitamin B-12] 1,000 mcg PO DAILY 07/21/16 [History] Docusate Sodium [Dok] 100 mg PO TID 07/21/16 [History] Insulin ASPART [NovoLOG] 0 unit SQ AD 07/21/16 [History] Magnesium Oxide [Mag-Ox] 400 mg PO DAILY 07/21/16 [History] Nitroglycerin [Nitrostat] 0.4 mg SL Q5M PRN 07/21/16 [History] Torsemide [Demadex] 60 mg PO BID 07/21/16 [History] raNITIdine HCl [Ranitidine HCl] 150 mg PO DAILY 07/21/16 [History] LORazepam [Ativan] 0.5 mg PO BID PRN #20 tablet 07/22/16 [Rx] Potassium Chloride [K-Tab ER] 40 meq PO BID 08/11/17 [History] Carvedilol [Coreg] 50 mg PO BIDWM 30 Days #60 tablet 08/13/17 [Rx] Hydralazine HCl 150 mg PO TID 02/24/18 [History] Apixaban [Eliquis] 5 mg PO BID 06/22/18 [History] Budesonide/Formoterol 160/4.5 [Symbicort 160/4.5] 2 puff IH BIDR 06/22/18 [History] Isosorbide MONOnitrate (24 HR) [Imdur] 120 mg PO DAILY 06/22/18 [History] NIFEdipine [Nifedipine ER] 90 mg PO BID 06/22/18 [History] Pantoprazole Sodium [Protonix] 40 mg PO DAILY 06/22/18 [History] Sertraline [Zoloft] 100 mg PO DAILY 06/22/18 [History] Spironolactone [Aldactone] 50 mg PO DAILY 06/22/18 [History] Allopurinol [Zyloprim 100 MG] 100 mg PO DAILY 09/06/18 [History] Ascorbic Acid [C-500] 500 mg PO DAILY #30 tablet 09/07/18 [Rx] Ferrous Sulfate [Iron] 325 mg PO DAILY #0 09/07/18 [Rx] cloNIDine HCl [Clonidine HCl] 0.3 mg PO BID #60 tab 09/07/18 [Rx] Amoxicillin/Clavulanate [Augmentin] 875 mg PO BIDWM #14 tablet 11/20/18 [Rx] Lactobacillus [Culturelle] 1 each PO BID #14 cap.sprink 11/20/18 [Rx] Allergies/Adverse Reactions: Allergy/AdvReac Type Severity Reaction Status Date / Time lisinopril Allergy Severe Swelling Verified 11/17/18 20:44 of Lip/Tongue/Throat Date of admission: 11/18/18 15:17 Primary care physician: Sky Carreno MD - Constitutional Vitals: Temp Pulse Resp BP Pulse Ox 98.4 F 51 16 166/64 95 11/20/18 07:02 11/20/18 08:46 11/20/18 07:02 11/20/18 08:46 11/20/18 08:46 - Patient Status Disposition: Home Health Service Condition: Fair - Discharge Instructions Follow Up With: Sky Carreno MD [Primary Care Provider] - 1 week - Diet and Activity Activity: resume usual activities as tolerated Diet: advance to your usual diet
[2018-11-20] MEDS: Budesonide/Formoterol 160/4.5 1 PUFF INH IH SCH (09:28)
[2018-11-20] MEDS ORDERED: FLU Vac QV 19-20 (6Month+)/PF 0.5 ML SYRINGE IM ONE (11:33)
== END 2018-11-20 12:44 | disposition home health service (06) | DRG 689 ==
LOC: EMEROOPIK 17:43 → INPPIK 17:43
PROVIDERS: ADMIT Internal Medicine; ATTEND Internal Medicine

== ENCOUNTER 2019-01-15 13:02 | Observation (INO) ==
[2019-01-15] MEDS ORDERED: Ipratropium/Albuterol Neb 3 ML IH STA (13:11)
[2019-01-15] MEDS ORDERED: methylPREDNISolone 125 MG/2 ML VIAL IVP STA (13:11)
[2019-01-15 13:37] LABS: ABG Base Excess 3 mEq/L (-2 to 3); ABG HCO3 27 mEq/L (21-27); ABG Oxygen Saturation 86 % (95-98); ABG PCO2 42 mmHg (35-45); ABG PH 7.43 pH Units (7.32-7.45); ABG PO2 51 mmHg (85-104); ABG TCO2 29 mEq/L (20-26)
[2019-01-15 13:40] LABS: Basophils # 0.1 K/mcL (0.0-0.2); Basophils % 0.6 %; Eosinophils # 0.3 K/mcL (0.0-0.6); Eosinophils % 2.8 %; Hematocrit 38.2 % (37.5-50.1); Hemoglobin 12.2 g/dL (12.9-16.9); Immature Granulocytes % 0.5 % (0-4); Lymphocytes # 1.9 K/mcL (0.6-4.6); Lymphocytes % 15.5 %; Mean Corpuscular HGB Conc 31.9 g/dL (31.6-35.5); Mean Corpuscular Hemoglobin 24.5 pg (28.0-33.3); Mean Corpuscular Volume 76.7 fL (83.0-100.0); Mean Platelet Volume 8.6 fL (9.4-12.4); Monocytes # 0.6 K/mcL (0.0-1.3); Monocytes % 4.8 %; Neutrophils # 9.1 K/mcL (1.6-8.9); Platelet Count 288 K/mcL (140-400); Red Blood Count 4.98 M/mcL (4.19-5.50); Red Cell Distribution Width 16.3 % (11.5-14.5); Segmented Neutrophils % 75.8 %
[2019-01-15 13:59] LABS: BUN/Creatinine Ratio 18 (6-26); Blood Urea Nitrogen 27 mg/dL (8-23); Calcium 9.9 mg/dL (8.6-10.3); Carbon Dioxide 28 mEq/L (23-29); Chloride 100 mEq/L (98-107); Glucose 69 mg/dL (70-105); Osmolality,Calculated 287 (280-300); Potassium 4.1 mEq/L (3.5-5.1); Sodium 137 mEq/L (136-145); Troponin I < 0.03 ng/mL (< 0.04); eGFR For African Americans 56 (> 60); eGFR For Non-African Americans 46 (> 60)
[2019-01-15] MEDS ORDERED: Azithromycin 500 MG in 0.9 % Sodium Chloride 250 ML IVPB ONE (14:01)
[2019-01-15] MEDS ORDERED: cefTRIAXone 1,000 MG in Water for inj. (sterile) 10 ML IVP ONE (14:01)
[2019-01-15] MEDS ORDERED: Naloxone 0.4 MG/ML INJ IVP PRN (15:58)
[2019-01-15] MEDS ORDERED: *HR* LORazepam 0.5 MG TABLET PO PRN (15:58)
[2019-01-15] MEDS ORDERED: Ipratropium/Albuterol Neb 3 ML IH PRN (15:58)
[2019-01-15] MEDS: Sucralfate 1 GM TABLET PO SCH ×2 (16:41→20:48)
[2019-01-15] MEDS: Torsemide 20 MG TABLET PO SCH (16:41)
[2019-01-15] MEDS ORDERED: Nicotine 21 MG PATCH.TD24 TD SCH (19:00)
[2019-01-15] MEDS: hydrALAZINE 25 MG TABLET PO SCH ×2 (19:01→20:46)
[2019-01-15] MEDS: cloNIDine HCl 0.1 MG TABLET PO SCH (20:46)
[2019-01-15] MEDS: NIFEdipine XL (24 HR) 30 MG TAB.ER.24 PO SCH (20:46)
[2019-01-15] MEDS: Acetaminophen 325 MG TABLET PO PRN (20:48)
[2019-01-15] MEDS: Insulin DETEMIR 100 UNIT/ML X5UNITS SQ SCH (20:49)
[2019-01-15] MEDS: Nicotine 21 MG PATCH.TD24 TD SCH (20:49)
[2019-01-15] MEDS: Apixaban 5 MG TABLET PO SCH (20:49)
[2019-01-16] MEDS: Budesonide/Formoterol 160/4.5 1 PUFF INH IH SCH ×3 (00:31→22:20)
[2019-01-16 05:45] LABS: Basophils % 0.2 %; Hematocrit 37.3 % (37.5-50.1); Hemoglobin 11.6 g/dL (12.9-16.9); Immature Granulocytes % 0.4 % (0-4); Lymphocytes # 0.9 K/mcL (0.6-4.6); Lymphocytes % 4.7 %; Mean Corpuscular HGB Conc 31.1 g/dL (31.6-35.5); Mean Corpuscular Volume 77.2 fL (83.0-100.0); Mean Platelet Volume 9.3 fL (9.4-12.4); Monocytes # 0.4 K/mcL (0.0-1.3); Monocytes % 2.3 %; Neutrophils # 16.7 K/mcL (1.6-8.9); Platelet Count 282 K/mcL (140-400); Red Blood Count 4.83 M/mcL (4.19-5.50); Red Cell Distribution Width 15.9 % (11.5-14.5); Segmented Neutrophils % 92.4 %; White Blood Count 18.1 K/mcL (4.3-11.1)
[2019-01-16 06:12] LABS: BUN/Creatinine Ratio 22 (6-26); Blood Urea Nitrogen 31 mg/dL (8-23); Calcium 9.2 mg/dL (8.6-10.3); Carbon Dioxide 28 mEq/L (23-29); Chloride 100 mEq/L (98-107); Glucose 416 mg/dL (70-105); Osmolality,Calculated 306 (280-300); Potassium 4.8 mEq/L (3.5-5.1); Sodium 136 mEq/L (136-145); eGFR For African Americans > 60 (> 60); eGFR For Non-African Americans 50 (> 60)
[2019-01-16] MEDS: Sucralfate 1 GM TABLET PO SCH ×4 (06:23→20:44)
[2019-01-16] MEDS: Isosorbide MONOnitrate (24 HR) 60 MG TAB.ER.24H PO SCH (08:47)
[2019-01-16] MEDS: Torsemide 20 MG TABLET PO SCH ×2 (08:47→16:26)
[2019-01-16] MEDS: Apixaban 5 MG TABLET PO SCH ×2 (08:47→20:44)
[2019-01-16] MEDS: NIFEdipine XL (24 HR) 30 MG TAB.ER.24 PO SCH ×2 (08:47→20:43)
[2019-01-16] MEDS: Spironolactone 25 MG TABLET PO SCH (08:47)
[2019-01-16] MEDS: Famotidine 20 MG TABLET PO SCH (08:48)
[2019-01-16] MEDS: cloNIDine HCl 0.1 MG TABLET PO SCH ×2 (08:48→20:45)
[2019-01-16] MEDS: hydrALAZINE 25 MG TABLET PO SCH ×3 (08:53→20:44)
[2019-01-16] MEDS: Nicotine 21 MG PATCH.TD24 TD SCH (08:54)
[2019-01-16] MEDS ORDERED: D5% in Water 1,000 ML IVC PRN (08:58)
[2019-01-16] MEDS ORDERED: *HR* Dextrose 50 % in Water (Vial) 50 ML VIAL IVP PRN (08:58)
[2019-01-16] MEDS ORDERED: Dextrose Gel 15 GM/37.5 ML TUBE PO PRN ×2 (08:58)
[2019-01-16] MEDS: Insulin LISPRO 300 UNITS/3 ML VIAL SQ SCH ×3 (10:01→16:27)
[2019-01-16] MEDS: Insulin DETEMIR 100 UNIT/ML X5UNITS SQ SCH (20:52)
[2019-01-16] MEDS: Acetaminophen 325 MG TABLET PO PRN (20:52)
[2019-01-16] MEDS ORDERED: Insulin LISPRO 300 UNITS/3 ML VIAL SQ SCH (21:00)
[2019-01-17 06:45] LABS: Basophils # 0.1 K/mcL (0.0-0.2); Basophils % 0.5 %; Eosinophils # 0.1 K/mcL (0.0-0.6); Eosinophils % 0.6 %; Hematocrit 34.6 % (37.5-50.1); Hemoglobin 10.8 g/dL (12.9-16.9); Immature Granulocytes % 0.5 % (0-4); Lymphocytes # 1.4 K/mcL (0.6-4.6); Lymphocytes % 11.7 %; Mean Corpuscular HGB Conc 31.2 g/dL (31.6-35.5); Mean Corpuscular Hemoglobin 24.3 pg (28.0-33.3); Mean Corpuscular Volume 77.8 fL (83.0-100.0); Mean Platelet Volume 9.3 fL (9.4-12.4); Monocytes # 0.8 K/mcL (0.0-1.3); Monocytes % 6.8 %; Neutrophils # 9.4 K/mcL (1.6-8.9); Platelet Count 236 K/mcL (140-400); Red Blood Count 4.45 M/mcL (4.19-5.50); Red Cell Distribution Width 15.9 % (11.5-14.5); Segmented Neutrophils % 79.9 %; White Blood Count 11.7 K/mcL (4.3-11.1)
[2019-01-17] MEDS: Insulin LISPRO 300 UNITS/3 ML VIAL SQ SCH ×2 (07:49→12:14)
[2019-01-17] MEDS: hydrALAZINE 25 MG TABLET PO SCH (09:16)
[2019-01-17] MEDS: cloNIDine HCl 0.1 MG TABLET PO SCH (09:17)
[2019-01-17] MEDS: NIFEdipine XL (24 HR) 30 MG TAB.ER.24 PO SCH (09:17)
[2019-01-17] MEDS: Sucralfate 1 GM TABLET PO SCH ×2 (09:18→12:14)
[2019-01-17] MEDS: Apixaban 5 MG TABLET PO SCH (09:18)
[2019-01-17] MEDS: Famotidine 20 MG TABLET PO SCH (09:18)
[2019-01-17] MEDS: Isosorbide MONOnitrate (24 HR) 60 MG TAB.ER.24H PO SCH (09:19)
[2019-01-17] MEDS: Spironolactone 25 MG TABLET PO SCH (09:19)
[2019-01-17] MEDS: Torsemide 20 MG TABLET PO SCH (09:19)
[2019-01-17] MEDS: Nicotine 21 MG PATCH.TD24 TD SCH (09:20)
[2019-01-17 09:30] LABS: % Iron Saturation 10 % (20-55); Iron 18 mcg/dL (65-175); Transferrin 123 mg/dL (203-362)
[2019-01-17 09:47] LABS: Ferritin 333 ng/mL (20-250)
[2019-01-17 09:54] LABS: Folate 11.6 ng/mL (3.0-16.0)
[2019-01-17] MEDS: Budesonide/Formoterol 160/4.5 1 PUFF INH IH SCH (10:00)
[2019-01-17 11:08] VITALS: BP 174/68
== END 2019-01-17 13:12 | disposition home or self-care (01) ==
LOC: EMEROOPIK 13:02 → INPPIK 13:02
PROVIDERS: ADMIT Internal Medicine; ATTEND Internal Medicine

== ENCOUNTER 2019-04-08 15:35 | Inpatient (IN) ==
[~2019-04-08 15:35] MED LIST: Magnesium Oxide 400 MG TABLET PO SCH
[2019-04-08] MEDS ORDERED: Piperacillin/Tazobactam 3.375 GM in 0.9 % Sodium Chloride Mini Bag 100 ML IVPB ONE (15:48)
[2019-04-08 16:14] LABS: Basophils # 0.1 K/mcL (0.0-0.2); Basophils % 0.7 %; Eosinophils # 0.4 K/mcL (0.0-0.6); Eosinophils % 2.7 %; Hematocrit 36.9 % (37.5-50.1); Hemoglobin 11.9 g/dL (12.9-16.9); Immature Granulocytes % 0.8 % (0-4); Lymphocytes # 2.1 K/mcL (0.6-4.6); Lymphocytes % 15.7 %; Mean Corpuscular HGB Conc 32.2 g/dL (31.6-35.5); Mean Corpuscular Hemoglobin 24.6 pg (28.0-33.3); Mean Corpuscular Volume 76.4 fL (83.0-100.0); Monocytes # 0.8 K/mcL (0.0-1.3); Monocytes % 5.8 %; Neutrophils # 10.1 K/mcL (1.6-8.9); Platelet Count 366 K/mcL (140-400); Red Blood Count 4.83 M/mcL (4.19-5.50); Red Cell Distribution Width 17.2 % (11.5-14.5); Segmented Neutrophils % 74.3 %; White Blood Count 13.6 K/mcL (4.3-11.1)
[2019-04-08] MEDS ORDERED: Mag Hydrox/Al Hydrox/Simeth 30 ML UDC PO PRN (16:29)
[2019-04-08] MEDS ORDERED: MOM Conc 10 ML UD.LIQ PO PRN (16:29)
[2019-04-08] MEDS ORDERED: Naloxone 0.4 MG/ML INJ IVP PRN (16:29)
[2019-04-08] MEDS ORDERED: Ondansetron 4 MG/2 ML VIAL IVP PRN (16:29)
[2019-04-08] MEDS ORDERED: Acetaminophen 325 MG TABLET PO PRN (16:29)
[2019-04-08 16:30] LABS: Albumin 4.1 g/dL (3.5-5.7); Albumin/Globulin Ratio 1.2 (1.1-2.2); Bilirubin,Total 0.3 mg/dL (0.3-1.0); Calcium 9.4 mg/dL (8.6-10.3); Globulin 3.5 g/dL (2.4-3.5); Potassium 4.3 mEq/L (3.5-5.1); Total Protein 7.6 g/dL (6.4-8.9)
[2019-04-08] MEDS ORDERED: Ondansetron Oral Soln 2 MG/2.5 ML ORAL.SYG PO PRN (16:33)
[2019-04-08] MEDS ORDERED: 0.9 % Sodium Chloride 1,000 ML IVC ONE (17:18)
[2019-04-08] MEDS: 0.9 % Sodium Chloride 1,000 ML IVC SCH (17:24)
[2019-04-08] MEDS: predniSONE 10 MG TABLET PO SCH (18:34)
[2019-04-08] MEDS ORDERED: *HR* Dextrose 50 % in Water (Vial) 50 ML VIAL IVP PRN (18:56)
[2019-04-08] MEDS ORDERED: Dextrose Gel 15 GM/37.5 ML TUBE PO PRN ×2 (18:56)
[2019-04-08] MEDS ORDERED: D5% in Water 1,000 ML IVC PRN (18:56)
[2019-04-08] MEDS ORDERED: hydrALAZINE 25 MG TABLET PO SCH ×2 (19:00→21:15)
[2019-04-08] MEDS: Lactobacillus 1 EACH CAP.SPRINK PO SCH (20:35)
[2019-04-08] MEDS: Apixaban 5 MG TABLET PO SCH (20:35)
[2019-04-08] MEDS: *HR* LORazepam 1 MG TABLET PO PRN (20:39)
[2019-04-08] MEDS: Insulin LISPRO 300 UNITS/3 ML VIAL SQ SCH (21:14)
[2019-04-08] MEDS: cloNIDine HCl 0.1 MG TABLET PO SCH (21:16)
[2019-04-08] MEDS: NIFEdipine XL (24 HR) 30 MG TAB.ER.24 PO SCH (21:16)
[2019-04-08] MEDS: Budesonide/Formoterol 160/4.5 1 PUFF INH IH SCH (21:37)
[2019-04-09] MEDS: Piperacillin/Tazobactam 3.375 GM in 0.9 % Sodium Chloride Mini Bag 100 ML IVPB SCH ×3 (00:07→17:15)
[2019-04-09 04:24] LABS: Bilirubin,Urine Negative (Negative); Blood,Urine Negative (Negative); Clarity,Urine Clear (Clear); Color,Urine Yellow (Yellow); Glucose,Urine (UA) Normal (Normal); Ketones,Urine Negative (Negative); Leukocyte Esterase,Urine Negative (Negative); Nitrite,Urine Negative (Negative); Protein,Urine 30 mg/dL (Neg-Trace); Urobilinogen,Urine Normal (Normal)
[2019-04-09 04:43] LABS: Squamous Epithelial Cell,Urine Few per lpf (None-Few)
[2019-04-09] MEDS: 0.9 % Sodium Chloride 1,000 ML IVC SCH (05:15)
[2019-04-09] MEDS ORDERED: Ascorbic Acid 500 MG TABLET PO SCH (06:30)
[2019-04-09] MEDS: Insulin LISPRO 300 UNITS/3 ML VIAL SQ SCH ×3 (07:39→17:17)
[2019-04-09 07:53] LABS: Hematocrit 34.8 % (37.5-50.1); Mean Corpuscular HGB Conc 31.6 g/dL (31.6-35.5); Mean Corpuscular Hemoglobin 24.3 pg (28.0-33.3); Mean Platelet Volume 8.8 fL (9.4-12.4); Platelet Count 283 K/mcL (140-400); Red Blood Count 4.52 M/mcL (4.19-5.50); Red Cell Distribution Width 17.2 % (11.5-14.5); White Blood Count 8.9 K/mcL (4.3-11.1)
[2019-04-09] MEDS ORDERED: Insulin DETEMIR 100 UNIT/ML X5UNITS SQ SCH (09:00)
[2019-04-09] MEDS ORDERED: Torsemide 20 MG TABLET PO SCH ×2 (09:00→21:00)
[2019-04-09] MEDS ORDERED: Cholecalciferol (D-3) 1,000 UNIT (25MCG) TABLET PO SCH (09:00)
[2019-04-09] MEDS ORDERED: Famotidine 20 MG TABLET PO SCH (09:00)
[2019-04-09] MEDS ORDERED: carvediloL 25 MG TABLET PO SCH (09:00)
[2019-04-09] MEDS ORDERED: Icosapent Ethyl [Vascepa] 2 GM PO SCH (09:00)
[2019-04-09] MEDS ORDERED: Spironolactone 25 MG TABLET PO SCH (09:00)
[2019-04-09] MEDS ORDERED: Apixaban 5 MG TABLET PO SCH (09:00)
[2019-04-09] MEDS ORDERED: Isosorbide MONOnitrate (24 HR) 60 MG TAB.ER.24H PO SCH ×3 (09:00→21:00)
[2019-04-09] MEDS: Budesonide/Formoterol 160/4.5 1 PUFF INH IH SCH (09:18)
[2019-04-09] MEDS: hydrALAZINE 25 MG TABLET PO SCH ×2 (09:56→15:19)
[2019-04-09] MEDS: Apixaban 5 MG TABLET PO SCH (09:56)
[2019-04-09] MEDS: cloNIDine HCl 0.1 MG TABLET PO SCH (09:57)
[2019-04-09] MEDS: predniSONE 10 MG TABLET PO SCH ×2 (09:57→17:18)
[2019-04-09] MEDS: Lactobacillus 1 EACH CAP.SPRINK PO SCH (09:57)
[2019-04-09] MEDS: NIFEdipine XL (24 HR) 30 MG TAB.ER.24 PO SCH (09:58)
[2019-04-09] MEDS ORDERED: Nitroglycerin 1 INCH/GM PACKET TP ONE (10:52)
[2019-04-09] MEDS: *HR* LORazepam 1 MG TABLET PO PRN (18:04)
[2019-04-09] MEDS ORDERED: Nicotine 21 MG PATCH.TD24 TD SCH (19:00)
[2019-04-09] MEDS ORDERED: *HR* Labetalol 100 MG/20 ML MDV IVP ONE (19:10)
[2019-04-09 19:49] VITALS: BP 235/87
== END 2019-04-09 20:00 | disposition short-term general hospital (02) | DRG 689 ==
LOC: INPPIK 15:35 → EMEROOPIK 15:35 → INPPIK 17:40
PROVIDERS: ADMIT Emergency Medicine; ATTEND Emergency Medicine

== ENCOUNTER 2019-07-09 12:04 | Inpatient (IN) ==
[2019-07-09 12:46] LABS: Basophils # 0.1 K/mcL (0.0-0.2); Basophils % 0.8 %; Eosinophils # 0.3 K/mcL (0.0-0.6); Eosinophils % 2.1 %; Hemoglobin 11.8 g/dL (12.9-16.9); Immature Granulocytes % 0.5 % (0-4); Lymphocytes # 1.9 K/mcL (0.6-4.6); Lymphocytes % 14.7 %; Mean Corpuscular HGB Conc 31.9 g/dL (31.6-35.5); Mean Corpuscular Hemoglobin 25.5 pg (28.0-33.3); Mean Corpuscular Volume 80.1 fL (83.0-100.0); Monocytes # 0.6 K/mcL (0.0-1.3); Monocytes % 4.3 %; Neutrophils # 10.2 K/mcL (1.6-8.9); Platelet Count 284 K/mcL (140-400); Red Blood Count 4.62 M/mcL (4.19-5.50); Red Cell Distribution Width 17.1 % (11.5-14.5); Segmented Neutrophils % 77.6 %; White Blood Count 13.2 K/mcL (4.3-11.1)
[2019-07-09 12:53] LABS: INR 1.5; Prothrombin Time 17.4 Seconds (9.4-12.1)
[2019-07-09 13:02] LABS: Alanine Aminotransferase 7 Units/L (7-52); Albumin/Globulin Ratio 1.3 (1.1-2.2); Alkaline Phosphatase 79 Units/L (34-104); Amylase 25 Units/L (29-103); Aspartate Amino Transferase 9 Units/L (13-39); BUN/Creatinine Ratio 14 (6-26); Bilirubin,Total 0.4 mg/dL (0.3-1.0); Blood Urea Nitrogen 27 mg/dL (8-23); Calcium 9.6 mg/dL (8.6-10.3); Carbon Dioxide 30 mEq/L (23-29); Chloride 100 mEq/L (98-107); Globulin 3.2 g/dL (2.4-3.5); Glucose 117 mg/dL (70-105); Magnesium 2.1 mg/dL (1.6-2.6); Osmolality,Calculated 294 (280-300); Potassium 4.7 mEq/L (3.5-5.1); Sodium 139 mEq/L (136-145); Total Protein 7.2 g/dL (6.4-8.9); eGFR For African Americans 43 (> 60); eGFR For Non-African Americans 36 (> 60)
[2019-07-09 13:05] LABS: Troponin I < 0.03 ng/mL (< 0.04)
[2019-07-09] MEDS ORDERED: cefTRIAXone 1,000 MG in 0.9 % Sodium Chloride Mini Bag 100 ML IVPB ONE (13:48)
[2019-07-09] MEDS ORDERED: Azithromycin 500 MG in 0.9 % Sodium Chloride 250 ML IVPB ONE (13:48)
[2019-07-09] MEDS ORDERED: Furosemide 40 MG/4 ML VIAL IVP ONE (13:49)
[2019-07-09 14:03] LABS: Bilirubin,Urine Negative (Negative); Blood,Urine Negative (Negative); Clarity,Urine Clear (Clear); Color,Urine Yellow (Yellow); Glucose,Urine (UA) Normal (Normal); Ketones,Urine Negative (Negative); Leukocyte Esterase,Urine Negative (Negative); Nitrite,Urine Negative (Negative); PH,Urine 6.5 pH Units (5.0-8.0); Protein,Urine Negative (Neg-Trace); Specific Gravity,Urine 1.015 (1.010-1.025); Urobilinogen,Urine Normal (Normal)
[2019-07-09] MEDS ORDERED: Naloxone 0.4 MG/ML INJ IVP PRN (14:33)
[2019-07-09] MEDS ORDERED: Mag Hydrox/Al Hydrox/Simeth 30 ML UDC PO PRN (14:33)
[2019-07-09] MEDS ORDERED: Acetaminophen 325 MG TABLET PO PRN (14:33)
[2019-07-09] MEDS ORDERED: MOM Conc 10 ML UD.LIQ PO PRN (14:33)
[2019-07-09] MEDS ORDERED: Ondansetron 4 MG/2 ML VIAL IVP PRN (14:33)
[2019-07-09] MEDS ORDERED: Fluticasone Propionate Nasal 50 MCG/SPRAY BOTTLE NS PRN (14:47)
[2019-07-09] MEDS ORDERED: HYDRALAZINE HCL 100 MG PO SCH (15:00)
[2019-07-09] MEDS ORDERED: *HR* Dextrose 50 % in Water (Vial) 50 ML VIAL IVP PRN (15:05)
[2019-07-09] MEDS ORDERED: Dextrose Gel 15 GM/37.5 ML TUBE PO PRN ×2 (15:05)
[2019-07-09] MEDS ORDERED: D5% in Water 1,000 ML IVC PRN (15:05)
[2019-07-09] MEDS ORDERED: cloNIDine HCL 0.1 MG TABLET ONE (16:03)
[2019-07-09] MEDS: hydrALAZINE 25 MG TABLET PO SCH ×2 (16:06→20:59)
[2019-07-09] MEDS: cloNIDine HCL 0.1 MG TABLET PO SCH ×2 (16:07→21:00)
[2019-07-09] MEDS ORDERED: Ipratropium/Albuterol Neb 3 ML IH PRN (16:29)
[2019-07-09] MEDS: Insulin LISPRO 300 UNITS/3 ML VIAL SQ SCH ×2 (16:57→21:03)
[2019-07-09] MEDS: Nicotine 14 MG PATCH.TD24 TD SCH (19:00)
[2019-07-09] MEDS: Furosemide 40 MG/4 ML VIAL IVP SCH (19:00)
[2019-07-09] MEDS: NIFEdipine XL (24 HR) 30 MG TAB.ER.24 PO SCH (20:59)
[2019-07-09] MEDS: Apixaban 5 MG TABLET PO SCH (20:59)
[2019-07-09] MEDS ORDERED: Insulin DETEMIR 100 UNIT/ML X5UNITS SQ SCH (21:00)
[2019-07-09] MEDS ORDERED: NON-FORMULARY MEDICATION 1 EACH EACH (Fluticasone/Salmeterol [Advair 500-50 Diskus] 1 EACH IH SCH (21:00)
[2019-07-09] MEDS: *HR* LORazepam 0.5 MG TABLET PO PRN (21:13)
[2019-07-09] MEDS: Budesonide/Formoterol 160/4.5 1 PUFF INH IH SCH (21:33)
[2019-07-10 05:39] LABS: Basophils % 0.2 %; Hematocrit 35.4 % (37.5-50.1); Hemoglobin 11.1 g/dL (12.9-16.9); Immature Granulocytes % 0.6 % (0-4); Lymphocytes # 1.2 K/mcL (0.6-4.6); Lymphocytes % 9.5 %; Mean Corpuscular HGB Conc 31.4 g/dL (31.6-35.5); Mean Corpuscular Hemoglobin 25.4 pg (28.0-33.3); Mean Platelet Volume 9.5 fL (9.4-12.4); Monocytes # 0.4 K/mcL (0.0-1.3); Monocytes % 3.1 %; Platelet Count 264 K/mcL (140-400); Red Blood Count 4.37 M/mcL (4.19-5.50); Red Cell Distribution Width 17.3 % (11.5-14.5); Segmented Neutrophils % 86.6 %; White Blood Count 12.3 K/mcL (4.3-11.1)
[2019-07-10 05:45] LABS: Neutrophils # 10.7 K/mcL (1.6-8.9)
[2019-07-10 05:58] LABS: Calcium 9.1 mg/dL (8.6-10.3); Potassium 4.7 mEq/L (3.5-5.1)
[2019-07-10] MEDS: Nicotine 14 MG PATCH.TD24 TD SCH (08:03)
[2019-07-10] MEDS: hydrALAZINE 25 MG TABLET PO SCH ×3 (08:04→20:25)
[2019-07-10] MEDS: Apixaban 5 MG TABLET PO SCH ×2 (08:04→20:23)
[2019-07-10] MEDS: cloNIDine HCL 0.1 MG TABLET PO SCH ×3 (08:05→20:24)
[2019-07-10] MEDS: Cyanocobalamin (B-12) 1,000 MCG TABLET PO SCH (08:05)
[2019-07-10] MEDS: NIFEdipine XL (24 HR) 30 MG TAB.ER.24 PO SCH ×2 (08:05→20:25)
[2019-07-10] MEDS: Magnesium Oxide 400 MG TABLET PO SCH (08:06)
[2019-07-10] MEDS: allopurinoL 100 MG TABLET PO SCH (08:06)
[2019-07-10] MEDS: Isosorbide MONOnitrate (24 HR) 60 MG TAB.ER.24H PO SCH (08:10)
[2019-07-10] MEDS: Insulin LISPRO 300 UNITS/3 ML VIAL SQ SCH ×4 (08:10→20:34)
[2019-07-10] MEDS: Furosemide 40 MG/4 ML VIAL IVP SCH ×2 (08:10→17:10)
[2019-07-10] MEDS: Budesonide/Formoterol 160/4.5 1 PUFF INH IH SCH ×2 (08:53→20:44)
[2019-07-10] MEDS ORDERED: amLODIPine 5 MG TABLET PO SCH (09:00)
[2019-07-10] MEDS: carvediloL 25 MG TABLET PO SCH (17:10)
[2019-07-10] MEDS: *HR* LORazepam 0.5 MG TABLET PO PRN (20:33)
[2019-07-10] MEDS ORDERED: Insulin DETEMIR 100 UNIT/ML X5UNITS SQ SCH (21:00)
[2019-07-11 07:01] VITALS: BP 160/74
[2019-07-11 07:41] LABS: Basophils # 0.1 K/mcL (0.0-0.2); Basophils % 0.6 %; Eosinophils # 0.2 K/mcL (0.0-0.6); Eosinophils % 1.8 %; Hematocrit 33.4 % (37.5-50.1); Hemoglobin 10.4 g/dL (12.9-16.9); Immature Granulocytes % 0.5 % (0-4); Mean Corpuscular HGB Conc 31.1 g/dL (31.6-35.5); Mean Corpuscular Hemoglobin 25.6 pg (28.0-33.3); Mean Corpuscular Volume 82.1 fL (83.0-100.0); Mean Platelet Volume 9.1 fL (9.4-12.4); Monocytes # 0.7 K/mcL (0.0-1.3); Monocytes % 6.3 %; Neutrophils # 7.4 K/mcL (1.6-8.9); Platelet Count 253 K/mcL (140-400); Red Blood Count 4.07 M/mcL (4.19-5.50); Red Cell Distribution Width 17.2 % (11.5-14.5); Segmented Neutrophils % 71.8 %; White Blood Count 10.4 K/mcL (4.3-11.1)
[2019-07-11] MEDS: hydrALAZINE 25 MG TABLET PO SCH (07:47)
[2019-07-11] MEDS: Insulin LISPRO 300 UNITS/3 ML VIAL SQ SCH (07:47)
[2019-07-11] MEDS: Nicotine 14 MG PATCH.TD24 TD SCH (07:47)
[2019-07-11] MEDS: cloNIDine HCL 0.1 MG TABLET PO SCH (07:48)
[2019-07-11] MEDS: Magnesium Oxide 400 MG TABLET PO SCH (07:48)
[2019-07-11] MEDS: Isosorbide MONOnitrate (24 HR) 60 MG TAB.ER.24H PO SCH (07:48)
[2019-07-11] MEDS: carvediloL 25 MG TABLET PO SCH (07:49)
[2019-07-11] MEDS: Apixaban 5 MG TABLET PO SCH (07:49)
[2019-07-11] MEDS: allopurinoL 100 MG TABLET PO SCH (07:49)
[2019-07-11] MEDS: NIFEdipine XL (24 HR) 30 MG TAB.ER.24 PO SCH (07:49)
[2019-07-11] MEDS: Cyanocobalamin (B-12) 1,000 MCG TABLET PO SCH (07:50)
[2019-07-11] MEDS: Furosemide 40 MG/4 ML VIAL IVP SCH (07:50)
[2019-07-11 07:53] LABS: Calcium 8.9 mg/dL (8.6-10.3)
[2019-07-11] MEDS: Budesonide/Formoterol 160/4.5 1 PUFF INH IH SCH (08:22)
== END 2019-07-11 10:20 | disposition home health service (06) | DRG 291 ==
LOC: EMEROOPIK 12:04 → INPPIK 12:04
PROVIDERS: ADMIT Family Medicine; ATTEND Family Medicine